=== PATIENT | female | born 1985 | race Caucasian/White ===

== ENCOUNTER 2023-01-03 20:52 | Outpatient (REF) | payer MEDICAID, SELFPAY | END 2023-01-03 20:53 | disposition home or self-care (01) | LOC: HO.HHCLNP 20:52 | PROVIDERS: Visit Provider Internal Medicine Geriatric Medicine | DX: R82.90 Unspecified abnormal findings in urine (principal) | CPT/HCPCS: 87086; 87088; 87186 ==

== ENCOUNTER 2023-03-31 09:30 | Outpatient (REF) | payer MEDICAID, SELFPAY ==
[2023-03-31 11:29] LABS: MANUAL DIFF FLAG NO
[2023-03-31 11:38] LABS: Basophils Percent Auto 0.6 % (0-2); Eosinophils Absolute Auto 0.3 X10*3/uL (0.0-0.4); Eosinophils Percent Auto 3.9 % (0-4); Hematocrit 38.1 % (37.0-47.0); Hemoglobin 12.3 g/dl (12.0-16.0); Imm Gran Abs Auto 0.02 X10*3/uL (0.00-0.03); Imm Gran Pct Auto 0.3 % (0.0-0.4); Lymphocytes Absolute Auto 1.6 X10*3/uL (1.2-4.9); Lymphocytes Percent Auto 24.2 % (20-40); Mean Corpuscular HGB Conc 32.3 g/dl (31.0-35.0); Mean Corpuscular Hemoglobin 28.3 pg (27.0-33.0); Mean Corpuscular Volume 87.6 fL (80.0-98.0); Mean Platelet Volume 10.4 fL (9.4-12.3); Monocytes Absolute Auto 0.4 X10*3/uL (0.1-1.2); Monocytes Percent Auto 5.9 % (2-11); Neutrophils Absolute Auto 4.3 x10*3/uL (2.0-8.3); Neutrophils Percent Auto 65.1 % (45-73); Platelet Count 408 X10*3/uL (160-400); Red Blood Count 4.35 X10*6/uL (4.20-5.50); Red Cell Distribution Width 14.6 % (11.0-16.0); White Blood Count 6.6 X10*3/uL (4.8-10.8)
[2023-03-31 11:49] LABS: Estimated Average Glucose 103 mg/dL; Hemoglobin A1C 93.9885 umol/L; Hemoglobin A1c % 5.2 % (<6.0)
[2023-03-31 12:04] LABS: Alanine Aminotransferase 9 U/L (0-31); Albumin Level 4.2 g/dL (3.5-5.0); Alkaline Phosphatase 46 U/L (39-117); Anion Gap 7 (12-20); Aspartate Amino Transferase 14 U/L (5-31); Bilirubin Direct 0.2 mg/dL (0.0-0.5); Bilirubin Total 0.5 mg/dL (0.0-1.0); Blood Urea Nitrogen 12 mg/dL (9-16); Calcium 9.4 mg/dL (8.4-10.2); Carbon Dioxide 28 mmol/L (22-29); Chloride 109 mmol/L (96-108); Cholesterol 170 mg/dL (<200); Estimated Glomerular Filt Rate > 60; Glucose Random 85 mg/dL (60-115); HDL Cholesterol 53 mg/dL (>40); LDL Cholesterol Calculated 107 mg/dL (<100); Sodium 140 mmol/L (135-145); Total Protein 7.7 g/dL (6.5-8.0); Triglycerides 52 mg/dL (<150)
[2023-03-31 12:24] LABS: Free T4 (Free Thyroxine) 0.84 ng/dL (0.71-1.85)
[2023-03-31 12:27] LABS: Syphilis Screen Nonreactive (Nonreactive)
[2023-03-31 12:42] LABS: HBS Num1 4.03 mIU/mL (0-7.99); HBsAGNum1 0.35 S/CO (0.00-0.99); HIV AB/AG Nonreactive (Nonreactive); HIV Num 1 0.05 S/CO (0.00-0.99); Hepatitis B Surface Antigen Negative (Negative); ~HepC Num1 0.57 S/CO (0.00-0.79); ~Hepatitis B Surface Antibody NONREACTIVE (Nonreactive); ~Hepatitis C Antibody Nonreactive (Nonreactive)
[2023-03-31 16:48] LABS: CT PCR NOT DETECTED (Not Detect.); NG PCR NOT DETECTED (Not Detect.)
== END 2023-03-31 09:31 | disposition home or self-care (01) ==
LOC: HO.HHCL 09:30
PROVIDERS: Visit Provider Family Medicine
DX: Z13.89 Encounter for screening for other disorder (principal)
CPT/HCPCS: 0353U; 80048; 80061; 80076; 82306; 83036; 84439; 84443; 85025; 86706; 86780; 86803; 87340; 87389

== ENCOUNTER 2023-07-13 11:34 | Outpatient (REF) | payer MEDICAID, SELFPAY ==
--- NOTE | ~2023-07-13 | US_ITS ---
EXAMINATION: US PELVIS CLINICAL INFORMATION: Abnormal uterine bleeding; the last menstrual period was on 06/17/2023. COMPARISON: Pelvic ultrasound dated 06/07/2019. TECHNIQUE: Ultrasound of the pelvis is performed using both transabdominal and transvaginal transducers along with Doppler. Transvaginal imaging is performed due to inadequate visualization transabdominally. FINDINGS: The uterus is of normal size and echogenicity, measuring 8.6 x 5.5 x 6.7 cm. The uterus is retroverted and retroflexed. A regular homogeneous endometrium is identified measuring 1.3 cm. Nabothian cysts are seen within the cervix. FIBROIDS: There are 4 fibroids seen. 1. Location: Posterior upper body, subserosal. Size: 2.5 x 1.1 x 1.7 cm. Prior: Not seen. Fibroid characteristics: Hypoechoic. 2. Location: Posterior upper body, submucosal. Size: 1.6 x 1.2 x 1.6 cm. Prior: Not seen. Fibroid characteristics: Heterogeneously hypoechoic. 3. Location: Mid fundus, myometrial. Size: 1.7 x 2.0 x 2.2 cm. Prior: 0.6 x 0.6 x 0.5 cm. Fibroid characteristics: Heterogeneously hypoechoic. 4. Location: Lower rightward body, myometrial. Size: 1.1 x 0.9 x 0.9 cm. Prior: Not seen. Fibroid characteristics: Hypoechoic. Both ovaries are of normal size and echogenicity. The right ovary measures 3.4 x 2.2 x 1.7 cm for a volume of 6.7 mL. The left ovary measures 3.5 x 2.0 x 2.3 cm for a volume of 8.5 mL. There is no pelvic free fluid. There is a small amount of free fluid in the cul-de-sac. US/US pelvic and transvaginal IMPRESSION: 1. Multiple uterine fibroids are seen, some new from prior. 2. There are nabothian cysts within the cervix. 3. There is a small amount of nonspecific free fluid within the cul-de-sac.
== END 2023-07-13 11:35 | disposition home or self-care (01) ==
LOC: HO.US 11:34
PROVIDERS: PCP Family Medicine; Visit Provider Family Medicine
DX: N93.9 Abnormal uterine and vaginal bleeding, unspecified (principal)
CPT/HCPCS: 76830; 76856

== ENCOUNTER 2023-12-05 11:52 | Outpatient (REF) | payer OTHER, SELFPAY | END 2023-12-05 11:53 | disposition home or self-care (01) | LOC: HO.MAMMO 11:52 | PROVIDERS: PCP Family Medicine; Visit Provider Family Medicine | DX: Z13.89 Encounter for screening for other disorder (principal) ==

== ENCOUNTER 2024-01-02 13:18 | Outpatient (REF) | payer SELFPAY ==
--- NOTE | ~2024-01-02 | MM_ITS ---
EXAMINATION: MM DIAGNOSTIC DIGITAL BREAST TOMOSYNTHESIS, BILATERAL US BREAST LIMITED, LEFT MAMMOGRAPHY: CLINICAL INFORMATION: Patient complaining of pain with tenderness to palpation at 12:00 axis right breast as per clinician, although patient says has resolved and cannot point out a corresponding region. Baseline bilateral screening exam. No family history of breast CA as per technologist note. COMPARISON: Mammography: None. Baseline exam. TECHNIQUE: Digital breast tomosynthesis is performed in both the craniocaudal and mediolateral oblique views along with computer-aided detection (CAD). Synthesized 2D images are generated from the tomosynthesis. In addition, 3-D spot compression left CC view, and full-field 3-D right ML view were also obtained. FINDINGS: There are scattered areas of fibroglandular density (ACR BI-RADS breast composition Category b). A possible distortion in the left breast 1:00 axis, middle one third, essentially effaces on spot compression view, most likely representing superimposition artifact. We will evaluate this region with ultrasound. Otherwise, there are are no suspicious masses, suspicious grouped calcifications, or areas of architectural distortion in either breast. There is no skin or axillary abnormality. ULTRASOUND: CLINICAL INFORMATION: Evaluate probable superimposition artifact left breast 1:00 axis, middle one third. COMPARISON: None TECHNIQUE: Targeted sonographic evaluation was performed using a high frequency linear transducer. Left breast was scanned from 11:00 to 3:00 axis to include the area of concern. Selected archived documentation. FINDINGS: LEFT BREAST: There is a mixture of fatty and fibroglandular tissue. No suspicious mass is seen. There is no pathologic acoustic shadowing. There are localized fibrocystic changes within dense breast tissue in the upper outer left breast. There are no suspicious findings. MM/MM tomosynthesis diagnostic BI IMPRESSION: There are no findings suspicious for malignancy in either breast. Recommend clinical management for the history of resolved right breast pain, if necessary. Otherwise, recommend the patient resume routine annual screening in one year. OVERALL ASSESSMENT: Mammography: BI-RADS 1 - Negative Ultrasound: BI-RADS 1 - Negative RECOMMENDATION: 1. Patient should be managed based on the clinical impression. 2. Otherwise, routine annual screening mammography. This patient's information was entered into a reminder system with a target due date for their next mammogram.
== END 2024-01-02 13:19 | disposition home or self-care (01) ==
LOC: HO.MAMMO 13:18
PROVIDERS: PCP Family Medicine; Visit Provider Family Medicine
DX: N64.4 Mastodynia (principal)
CPT/HCPCS: 76642; 77062; 77066

== ENCOUNTER → 2024-01-02 13:30 | Outpatient (BNV) | payer OTHER, SELFPAY | PROVIDERS: PCP Family Medicine; Visit Provider Radiology Diagnostic Radiology | DX: N64.4 Mastodynia (principal) | CPT/HCPCS: 76642; 77062; 77066 ==

== ENCOUNTER 2024-03-29 08:23 | Outpatient (AMB) | payer OTHER, SELFPAY ==
[2024-03-29 08:31] VITALS: BP 102/62; BMI 25.7
--- NOTE | 2024-03-29 08:31 | A.OFFVIS_ITS ---
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 Last co testing was in 05/16 was negative. Last mammogram was BI-RADS 1 in 01/20 Pelvic ultrasound done in 07/23 showed the following: The uterus is of normal size and echogenicity, measuring 8.6 x 5.5 x 6.7 cm. The uterus is retroverted and retroflexed. A regular homogeneous endometrium is identified measuring 1.3 cm. Nabothian cysts are seen within the cervix. FIBROIDS: There are 4 fibroids seen. 1. Location: Posterior upper body, subserosal. Size: 2.5 x 1.1 x 1.7 cm. Prior: Not seen. Fibroid characteristics: Hypoechoic. 2. Location: Posterior upper body, submucosal. Size: 1.6 x 1.2 x 1.6 cm. Prior: Not seen. Fibroid characteristics: Heterogeneously hypoechoic. 3. Location: Mid fundus, myometrial. Size: 1.7 x 2.0 x 2.2 cm. Prior: 0.6 x 0.6 x 0.5 cm. Fibroid characteristics: Heterogeneously hypoechoic. 4. Location: Lower rightward body, myometrial. Size: 1.1 x 0.9 x 0.9 cm. Prior: Not seen. Fibroid characteristics: Hypoechoic. Both ovaries are of normal size and echogenicity. The right ovary measures 3.4 x 2.2 x 1.7 cm for a volume of 6.7 mL. The left ovary measures 3.5 x 2.0 x 2.3 cm for a volume of 8.5 mL. There is no pelvic free fluid. There is a small amount of free fluid in the cul-de-sac. [facility] Social History (Updated 03/29/24 @ 08:35 by Michelle Enriquez) Household Members: Children Patient : No Female Reproductive History Menstrual Age of Menarche: 9 Duration of menses: 3-5 days Date of last menstrual period: 02/09/24 control method: permanent sterilization Total pregnancies: 2 Full term: 2 Premature: 0 Number of Living Children: 2 Ab induced: 0 Ab spontaneous: 0 Ectopics: 0 Multiple births: 0 Date of last pap smear: 03/01/22 History of abnormal pap smear: No History of STI: No Date of Mammogram: 01/30/24 History of abnormal mammogram: No Review of Systems Const All systems reviewed & are unremarkable except as noted in HPI and below Card Reports as per HPI Resp Reports as per HPI GI Reports as per HPI and Reports no additional complaints Reports as per HPI Physical Exam Vital Signs: Last Vital Signs BP 102/62 03/29/24 08:31 BMI result Body Mass Index 25.7 Const General: cooperative, healthy appearing and comfortable Chest Chest palpation & inspection: normal inspection of the chest and normal palpation of entire chest wall Breast/axilla inspection: normal inspection of the breasts and normal inspection of the axillae Breast/axilla palpation: normal palpation of the breasts, normal palpation of the axillae and no axillary lymphadenopathy Resp Effort & Inspection: normal respiratory effort Auscultation: clear to auscultation bilaterally Percussion: percussion normal Cardio Palpation: normal PMI Rate: regular rate Rhythm: regular rhythm Heart sounds: no murmurs and no rubs Peripheral pulses: Peripheral pulses 2+ throughout GI Inspection: Yes normal to inspection Palpation (GI): Soft to palpation, nontender, no guarding, not rigid and No hepatosplenomegaly present Percussion: Yes normal to percussion Auscultation: normal bowel sounds Rectal Exam - Female: deferred General: Yes bladder normal to palpation External Female Exam: No lesion Speculum Exam - Vagina: normal appearance of the vagina, normal palpation, normal vaginal discharge and not erythematous Speculum Exam - Cervix: normal appearance of the cervix and normal palpation Bimanual exam- vagina & uterus: normal bimanual exam, normal palpation, uterine size normal, bladder normal to palpation, consistency normal and normal palpation Bimanual Exam- Adnexa, other: normal adnexae, no masses and no tenderness Assessment & Plan Assessment & Plan (1) Abnormal uterine bleeding (AUB): Comment: With uterine myomas Code(s): N93.9 - Abnormal uterine and vaginal bleeding, unspecified Category: Medical Plan: Co testing done, GC and chlamydia taken CBC, TSH, prolactin, HCG, and pelvic ultrasound ordered. Discussed with the patient the different causes of abnormal bleeding including thyroid disorders, uterine and ovarian pathology, endometrial hyperplasia, carcinoma and other potential causes. Discussed with the patient the work up including CBC (to r/o anemia), TSH, prolactin, pelvic Ultrasound, endometrial biopsy to r/o endometrial pathology. All questions answered and the patient verbalized understanding. Instructed the patient to schedule an appointment for an endometrial biopsy in 2 weeks. Orders: Orders TSH reflex Free T4 Today N93.9 - Abnormal uterine and vaginal bleeding, unspecified US pelvic and transvaginal Today N93.9 - Abnormal uterine and vaginal bleeding, unspecified Complete Blood Count no Diff Today N93.9 - Abnormal uterine and vaginal bleeding, unspecified Prolactin Today N93.9 - Abnormal uterine and vaginal bleeding, unspecified HCG Quantitative Today N93.9 - Abnormal uterine and vaginal bleeding, unspecified Coding Level of Care Code New Pt Level 3 (69360) Diagnoses Abnormal uterine bleeding (AUB) N93.9
== END 2024-03-29 09:05 | disposition home or self-care (01) ==
LOC: HO.HWS 08:23
PROVIDERS: PCP Family Medicine; Visit Provider Obstetrics & Gynecology
DX: N93.9 Abnormal uterine and vaginal bleeding, unspecified (principal)
CPT/HCPCS: 99203

== ENCOUNTER 2024-03-29 08:23 | Outpatient (REF) | payer OTHER, SELFPAY ==
[2024-03-29 10:26] LABS: Hematocrit 39.4 % (37.0-47.0); Hemoglobin 12.8 g/dl (12.0-16.0); Mean Corpuscular HGB Conc 32.5 g/dl (31.0-35.0); Mean Corpuscular Hemoglobin 27.5 pg (27.0-33.0); Mean Corpuscular Volume 84.7 fL (80.0-98.0); Platelet Count 392 X10*3/uL (160-400); Red Blood Count 4.65 X10*6/uL (4.20-5.50); Red Cell Distribution Width 14.6 % (11.0-16.0); White Blood Count 8.4 X10*3/uL (4.8-10.8)
[2024-03-29 11:19] LABS: HCG Quantitative < 2 mIU/mL
[2024-03-29 18:13] LABS: Bacterial Vaginosis PCR POSITIVE (Negative); Candida Group PCR DETECTED (Not Detect); Candida glab krusei PCR NOT DETECTED (Not Detect); Trichomonas vaginalis PCR NOT DETECTED (Not Detect)
[2024-03-29 18:41] LABS: CT PCR NOT DETECTED (Not Detect.); NG PCR NOT DETECTED (Not Detect.)
[2024-03-30 08:22] LABS: Prolactin 12.3 ng/mL
[2024-03-30 11:04] LABS: HPV 16,18/45 See PAP report
== END 2024-03-29 08:24 | disposition home or self-care (01) ==
LOC: HO.LNP 08:23
PROVIDERS: PCP Family Medicine; Visit Provider Obstetrics & Gynecology
DX: N93.9 Abnormal uterine and vaginal bleeding, unspecified (principal)
CPT/HCPCS: 0352U; 84146; 84443; 84702; 85027; 87491; 87591; 87624; 88175; 99202

== ENCOUNTER 2024-03-29 09:15 | Outpatient (REF) | payer OTHER, SELFPAY | END 2024-03-29 09:16 | disposition home or self-care (01) | LOC: HO.LAB 09:15 | PROVIDERS: PCP Family Medicine; Referring Provider Family Medicine; Visit Provider Obstetrics & Gynecology | DX: Z13.89 Encounter for screening for other disorder (principal) ==

== ENCOUNTER 2024-04-05 13:23 | Outpatient (REF) | payer OTHER, SELFPAY | END 2024-04-05 13:24 | disposition home or self-care (01) | LOC: HO.US 13:23 | PROVIDERS: PCP Family Medicine; Visit Provider Obstetrics & Gynecology | DX: N93.9 Abnormal uterine and vaginal bleeding, unspecified (principal) | CPT/HCPCS: 76830; 76856 ==

== ENCOUNTER 2024-04-10 09:43 | Outpatient (AMB) | payer OTHER, SELFPAY ==
[2024-04-10 09:49] VITALS: BP 106/70; BMI 25.5
--- NOTE | 2024-04-10 09:49 | MHC.OFFVIS ---
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 Gill Box Tender Required: Yes Gill Box Tender Language: Transmission Inspector Services: Gill Box Tender Present (in person) Gill Box Tender Name: Marylou HOLLOWAY Information Interpreted: non-clinical & clinical Counterintelligence/Humint Specialist: Counterintelligence/Humint Specialist Present (Marylou HOLLOWAY) Accompanied by: Self / Same As Patient Allergies No Known Allergies Allergy (Unverified 04/10/24 09:50) HPI Comments Details: Presenting for EMB [facility] Social History Household Members: Children Female Reproductive History Menstrual Age of Menarche: 9 Review of Systems Const All systems reviewed & are unremarkable except as noted in HPI and below Reports as per HPI and Reports no additional complaints GI Reports no additional complaints Reports no additional complaints Physical Exam Vital Signs: Last Vital Signs BP 106/70 04/10/24 09:49 BMI result Body Mass Index 25.5 Office Procedures Endometrial Biopsy Details: The patient was counseled regarding the indication and benefits of endometrial sampling to rule out endometrial pathology including not limited to endometrial hyperplasia or endometrial cancer and others; The alternatives (Either do nothing vs. hysteroscopy D&C) & the risks were discussed with the patient including but not limited: pain, uterine perforation, bleeding, infection, possible injury to bladder, bowel, ureter, possible need for blood transfusion with all its possible risks. The patient verbalized understanding all questions answered and signed consent. Urine test done in the office was negative The patient was placed into the dorsal lithotomy position; a speculum was inserted in the vagina. Using aseptic technique for the procedure, the cervix was cleansed with Betadine. The anterior lip of the cervix was grasped with a single tooth tenaculum. The uterus was sounded to 7 cm with a 4 mm Pipelle was used. Tissues samples were obtained and placed in formalin, in a patient labeled container and sent to the pathology department. At the end of the procedure, there was minimal bleeding noted The patient tolerated the procedure well and was discharged in good condition with the following instructions: Nothing in the vagina until the bleeding stops. No sex until the bleeding stops, to call if any of the following occurs: fever (>100.4), flu-like symptoms, abdominal pain, heavy bleeding, four smelling vaginal discharge. The patient was instructed to schedule a Follow up appointment in 2 weeks to discuss pathology results of the biopsy and treatment options. This note was generated with a voice recognition program. Some errors may have been overlooked during the review of this note. Sometimes these errors may affect the content or meaning of a given sentence. 75118-[id number] Biopsy Results AMB Test Urine AMB Test Urine Negative Last Edit by Marylou Payne CMA on 04/10/24 09:55 Assessment & Plan Assessment & Plan (1) Abnormal uterine bleeding (AUB): Comment: With uterine myomas Code(s): N93.9 - Abnormal uterine and vaginal bleeding, unspecified Category: Medical Plan: EMB done, see procedure note Orders: Orders AMB HCG Urine Test Today Z32.02 - Encounter for test, result negative AMB Endometrial Biopsy Today N93.9 - Abnormal uterine and vaginal bleeding, unspecified Coding Level of Care Code Procedure Only Diagnoses Abnormal uterine bleeding (AUB) N93.9 CPT Codes Endometrial Biopsy - CPT: 40367-[id number] Biopsy ([id number])
== END 2024-04-10 10:12 | disposition home or self-care (01) ==
LOC: HO.HWS 09:43
PROVIDERS: PCP Family Medicine; Visit Provider Obstetrics & Gynecology
DX: N93.9 Abnormal uterine and vaginal bleeding, unspecified (principal); Z32.02 Encounter for pregnancy test, result negative
CPT/HCPCS: 58100

== ENCOUNTER 2024-04-10 09:43 | Outpatient (REF) | payer OTHER, SELFPAY | END 2024-04-10 09:44 | disposition home or self-care (01) | LOC: HO.LNP 09:43 | PROVIDERS: PCP Family Medicine; Visit Provider Obstetrics & Gynecology | DX: N93.9 Abnormal uterine and vaginal bleeding, unspecified (principal) | CPT/HCPCS: 58100; 81025; 88305 ==

== ENCOUNTER 2024-08-16 14:23 | Outpatient (AMB) | payer OTHER, SELFPAY ==
--- NOTE | 2024-08-16 14:23 | A.OFFVIS_ITS ---
Intake Visit Reasons: u/s and emb results Financial Engineer Required: Yes Financial Engineer Language: Bus Driver Supervisor Services: Financial Engineer Present (In person) Financial Engineer Name: AMIE Bautista Information Interpreted: non-clinical & clinical Allergies No Known Allergies Allergy (Verified 08/16/24 14:24) HPI Comments Details: The patient scheduled a telehealth visit for follow-up to discuss the results of her abnormal uterine bleeding workup and options of treatment. The following workup was done.: H&H= 12.8/39.4 TSH, prolactin, hCG, GC and chlamydia were negative. Endometrial biopsy pathology showed the following: Disordered proliferative endometrium; no atypia or hyperplasia identified Co testing was done was negative. Mammogram was negative. Pelvic ultrasound showed the following: Uterus: The uterus is anteverted and measures 7.2 x 4.2 x 5.2 cm for a volume of 84 mL. The double wall endometrial thickness is 4 mm. Four fibroids are seen and measured, ranging in size from 0.9 cm to 2.2 cm, most measuring smaller than on the prior exam. Nabothian cysts are present within the cervix. Adnexa: Both ovaries are visualized. There is normal color flow to the adnexa. There is no ovarian torsion. There is a tiny amount of pelvic fluid. Right ovary measures 2.8 x 1.5 x 1.7 cm for a volume of 3.7 mL. Follicular cysts are seen along with some calcifications. Left ovary measures 3.5 x 1.7 x 2.4 cm for a volume of 7.4 mL. Follicular cysts are noted. [facility] Social History Household Members: Children Female Reproductive History Menstrual Age of Menarche: 9 Review of Systems Const All systems reviewed & are unremarkable except as noted in HPI and below Reports as per HPI and Reports no additional complaints GI Reports no additional complaints Reports no additional complaints Telehealth Telehealth Telehealth Platform: [facility] Location of provider rendering services: practice address Location of patient: address on file Patient Identification confirmed using: Name, : Yes Telehealth method: voice only Patient verbally consented to treatment: Yes Patient verbally consented to billing insurance company: Yes Patient informed of any privacy concerns related to visit: Yes Minutes spent on Phone/Video with Pt.: 10 Assessment & Plan Assessment & Plan (1) Abnormal uterine bleeding (AUB): Code(s): N93.9 - Abnormal uterine and vaginal bleeding, unspecified Category: Medical Plan: Discussed with the patient the results of the work up done and options of treatment including Lysteda, control pills, Mirena IUD, endometrial ablation and hysterectomy. All pros, cons, risks and benefits if each option was discussed with the patient and the patient decided to go ahead with Mirena IUD so a more detailed discussion about it was conducted including mechanism of action, risks (uterine perforation, infection, injury to bladder, bowel, displacement, and others) benefits (hypo menorrhea, amenorrhea, ...). GC/CT were taken and the patient was instructed to schedule Mirena IUD insertion on day 1-5 of next cycle . All questions answered, the patient verbalized understanding (2) Uterine myoma: Code(s): D25.9 - Leiomyoma of uterus, unspecified Category: Medical Plan: Discussed with the patient the findings on pelvic ultrasound & the risk of myosarcoma; in addition reviewed with the patient that malignancy and pre malignancy cannot be ruled out without hysterectomy for pathological evaluation ; furthermore, explained to the patient the limitation of pelvic ultrasound and endometrial biopsy in the setting. Discussed with the patient the options of treatment including expectant management versus hysterectomy; the pros and cons, risks benefits of each approach were discussed with the patient including the fact that in cases of myosarcoma, surgical treatment can lead to early diagnosis and positively affects the prognosis; after further discussion, the patient decided to proceed with expectant management. Will repeat pelvic ultrasound periodically. Instructions given to patient to call in case any of the following occurs: pressure symptoms, abnormal uterine bleeding, pelvic pain; and to schedule a six-months pelvic ultrasound (order placed) and a follow-up appointment . All questions answered, the patient verbalized understanding and agreed with the plan . I spent a total of 20 minutes reviewing the chart, talking to the patient via phone and documenting in the medical record. Orders: Orders US pelvic and transvaginal 6 Months D25.9 - Leiomyoma of uterus, unspecified Coding Level of Care Code [facility] Est Pt Level 3 (85316) Diagnoses Abnormal uterine bleeding (AUB) N93.9 Uterine myoma D25.9
== END 2024-08-16 16:06 | disposition home or self-care (01) ==
LOC: HO.HWS 14:23
PROVIDERS: PCP Family Medicine; Visit Provider Obstetrics & Gynecology
DX: N93.9 Abnormal uterine and vaginal bleeding, unspecified (principal); D25.9 Leiomyoma of uterus, unspecified
CPT/HCPCS: 99213

== ENCOUNTER → 2024-08-16 14:23 | Outpatient (BNVA) | payer OTHER, SELFPAY | PROVIDERS: PCP Family Medicine; Visit Provider Obstetrics & Gynecology ==

== ENCOUNTER 2025-01-07 09:49 | Outpatient (REF) | payer OTHER, SELFPAY ==
--- OUTSIDE RECORDS SUMMARY | 2025-01-07 10:21 | XMS_ITS | Encounter Summary ---
Author Organization [employer] Address [address] [place] [address] Care Team Providers Care Field Test Engineer Name Role Phone Shivani Jordan DO Primary Care Provider [phone] Reason for Visit * Reason Onset Date Comments Appointment Request 06/29/2023 Encounter Details Date Type Department Care Team ([facility] st Contact Info) Description 06/29/2023 Telephone [facility] [address] [place] [address] Shivani Jordan DO [address] [place], [place] [id number] Appointment Request Social History Tobacco Use Types Packs/Day Years Used Date Smoking Tobacco: Never Passive Smoke Exposure: Never Smokeless Tobacco: Never Alcohol Use Standard Drinks/Week Comments Never 0 (1 standard drink = 0.6 oz pur e alcohol) Depression Answer Date Recorded Patient Health Questionnaire-9 Score 0 06/02/2022 Housing Stability Answer Date Recorded What is your housing situation today? I have albert levi 03/28/[address] you li ve. Do you have problems with any of the following? None of the above 03/28/2023 Food Insecurity Answer Date Recorded Within the past 12 months, y ou worried that your food would run out before you got money to buy more: Never True 03/28/2023 Within the past 12 months,th e food you bought just didn't last and you didn't have enough money to get more: Never True Transportation Answer Date Recorded In the past 12 months, has l ack of transportation kept you from medical appts, meetings, work or from getting things needed for daily living? No 03/28/2023 Utilities Answer Date Recorded In the past 12 months, has t he electric, gas, oil or water company threatened to shut off services in your home? 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 Pt is on recall. Please contact pt at [phone] documented in this encounter Plan of Treatment Not on file documented as of this encounter Visit Diagnoses Not on filedocumented in this encounter Additional Health Concerns Assessment Noted Time PHQ-9 Depression Total Score: 0 06/02/19 23 9:59 AM EST documented as of this encounter Care Teams Field Test Engineer Relationship Specialty Start Date End Date Shivani Jordan DO [address] [place] [address] PCP - General Family Medicine 05/30/18 documented as of this encounter
[2025-01-07 11:37] LABS: Hematocrit 35.8 % (37.0-47.0); Hemoglobin 11.5 g/dl (12.0-16.0); Mean Corpuscular HGB Conc 32.1 g/dl (31.0-35.0); Mean Corpuscular Hemoglobin 27.5 pg (27.0-33.0); Mean Corpuscular Volume 85.6 fL (80.0-98.0); NRBC Abs Auto 0.000 X10*3/uL (0.0-0.012); NRBC Pct Auto 0.0 /100WBC (0.0-0.2); Platelet Count 396 X10*3/uL (160-400); Red Blood Count 4.18 X10*6/uL (4.20-5.50); White Blood Count 7.0 X10*3/uL (4.8-10.8)
[2025-01-07 12:08] LABS: Alanine Aminotransferase 12 U/L (0-31); Albumin Level 4.0 g/dL (3.5-5.0); Alkaline Phosphatase 51 U/L (39-117); Anion Gap 11 (12-20); Aspartate Amino Transferase 23 U/L (5-31); Blood Urea Nitrogen 11 mg/dL (9-16); Calcium 8.7 mg/dL (8.4-10.2); Carbon Dioxide 30 mmol/L (22-29); Chloride 104 mmol/L (96-108); Cholesterol 165 mg/dL (<200); Estimated Glomerular Filt Rate > 60; HDL Cholesterol 55 mg/dL (>40); Potassium 4.2 mmol/L (3.3-5.1); Sodium 141 mmol/L (135-145); Total Protein 6.9 g/dL (6.5-8.0); Triglycerides 67 mg/dL (<150)
[2025-01-07 12:10] LABS: HBS Num1 1.46 mIU/mL (0-7.99); HBc Num1 0.08 S/CO (0.00-0.79); HBsAGNum1 0.40 S/CO (0.00-0.99); HIV Num 1 0.05 S/CO (0.00-0.99); Hepatitis B Surface Antigen Negative (Negative); ~HepC Num1 0.89 S/CO (0.00-0.79); ~Hepatitis B Surface Antibody NONREACTIVE (Nonreactive)
[2025-01-07 12:23] LABS: Free T4 (Free Thyroxine) 0.88 ng/dL (0.71-1.85); Thyroid Stimulating Hormone 1.99 uIU/mL (0.32-4.0)
[2025-01-07 12:28] LABS: Hemoglobin A1C 114.2241 umol/L; Total Hemoglobin (HGBA1C) 3079.8501 umol/L
[2025-01-07 13:06] LABS: CT PCR Urine NOT DETECTED (Not Detect.); NG PCR Urine NOT DETECTED (Not Detect.)
[2025-01-07 13:24] LABS: ~HepC Num2 0.96; ~HepC Num3 0.87; ~Hepatitis C Antibody GRAYZONE (Nonreactive)
[2025-01-08 16:18] LABS: HCV Log PCR <1.18 NOT DETECTED Log IU/mL (NOT DETECTED); HepC Viral Load <15 NOT DETECTED IU/mL (NOT DETECTED)
[2025-01-11 04:00] LABS: ~Hepatitis A Antibody IgG 0.36 S/CO (0.00-0.99)
== END 2025-01-07 09:50 | disposition home or self-care (01) ==
LOC: HO.HHCL 09:49
PROVIDERS: PCP Family Medicine; Visit Provider Family Medicine
DX: Z00.00 Encounter for general adult medical examination without abnormal findings (principal); Z11.8 Encounter for screening for other infectious and parasitic diseases; Z11.3 Encounter for screening for infections with a predominantly sexual mode of transmission; Z11.4 Encounter for screening for human immunodeficiency virus [HIV]; Z11.59 Encounter for screening for other viral diseases; J30.9 Allergic rhinitis, unspecified; I34.1 Nonrheumatic mitral (valve) prolapse; R10.2 Pelvic and perineal pain; G89.29 Other chronic pain
CPT/HCPCS: 36415; 80048; 80061; 80076; 82306; 83036; 84439; 84443; 85027; 86592; 86704; 86706; 86708; 86803; 87340; 87389; 87491; 87522; 87591

== ENCOUNTER 2025-03-01 08:44 | Outpatient (REF) | payer OTHER, SELFPAY ==
--- OUTSIDE RECORDS SUMMARY | 2025-03-01 09:06 | XMS_ITS | Encounter Summary ---
Author Organization [employer] Address [address] [place] [address] [address] [place] [address] Care Team Providers Care Book Author Name Role Phone Nikki Shivani Primary Care Provider [phone] Encounter Details Date Type Department Care Team ([facility] st Contact Info) Description 10/08/2022 Orders Only [facility] [address] [place] [address] Joshua Schofield MD [address] [place] [address] Vaginal candidiasis (Primary Dx) Social History Tobacco Use Types Packs/Day Years Used Date Smoking Tobacco: Never Passive Smoke Exposure: Never Smokeless Tobacco: Never Alcohol Use Standard Drinks/Week Comments Never 0 (1 standard drink = 0.6 oz pur e alcohol) Depression Answer Date Recorded Patient Health Questionnaire-9 Score 0 06/02/2022 Depression Answer Date Recorded Patient Health Questionnaire-2 Score 0 06/02/2022 Comments No Sex and Gender Information Value Date Recorded Sex Assigned at Female 03/29/2022 10:19 AM EDT Legal Sex Female 10:19 AM EDT Gender Identity Female 03/29/2022 10:19 AM EDT Sexual Orientation Choose not to disclose 2021 10:19 AM EDT Occupation Industry Job Start Date Job End Date [employer] Not on file Not on file Not on file COVID-19 Exposure Response Date Recorded In the last 10 days, have yo u been in contact with someone who was confirmed or suspected to have Coronavirus/COVID-19? No / Unsure 10/07/2022 9:10 AM EDT documented as of this encounter Plan of Treatment Not on file documented as of this encounter Procedures Procedure Name Priority Date/Time Associated Diagnosis Comments SYPHILIS SCREEN Routine 03/31/2023 9:43 AM EDT Vaginal candidiasis HEPATITIS C AB W/REFL TO HCV RNA, QN, PCR Routine 03/31/2023 9:43 AM EDT Vaginal candidiasis HEPATITIS B SURFACE ANTIGEN, EIA Routine 03/31/2023 9:43 AM EDT Vaginal candidiasis HEPATITIS B SURFACE ANTIBODY, QUALITATIVE Routine 03/31/2023 9:43 AM EDT Vaginal candidiasis CULTURE, URINE, ROUTINE Routine 01/03/2023 12:00 AM EDT Vaginal candidiasis documented in this encounter Results * Hepatitis B surface antigen, EIA (03/31/2023 9:43 AM EDT) Hepatitis B Surface Ag Negative Negative [facility] 03/31/2023 9:43 AM EDT 03/31/2023 11:25 AM EDT Shivani Jordan DO LAB BLOOD ORDERABLES Final R esult Performing Organization Address [facility] Co de Phone Number [facility] [address] [place] [phone] * Hepatitis C Antibody with Reflex to HCV, RNA, Quantitative, Real-Time PCR (03/31/2023 9:43 AM EDT) Hepatitis C Antibody Nonreactive Nonreactive [facility] Comment:Antibodies to HCV no t detected; does not exclude early acuteHCV infection. 03/31/2023 9:43 AM EDT 03/31/2023 11:25 AM EDT Shivani Jordan DO LAB BLOOD ORDERABLES Final R esult Performing Organization Address City/[facility]/ZIP Co de Phone Number [facility] [address] [place] [phone] * Hepatitis B Surface Antibody, Qualitative (03/31/2023 9:43 AM EDT) ~Hepatitis B Surface Antibody NONREACTIVE Nonreactive [facility] Comment:Nonreactive: < 8.00 mIU/mL 03/31/2023 9:43 AM EDT 03/31/2023 11:25 AM EDT Shivani Jordan DO LAB BLOOD ORDERABLES Final R esult [facility] [address] [place] [phone] * Syphilis Screen (03/31/2023 9:43 AM EDT) Syphilis Screen Nonreactive Nonreactive [facility] 03/31/2023 9:43 AM EDT 03/31/2023 11:25 AM EDT Shivani Jordan DO LAB BLOOD ORDERABLES Final R esult Performing Organization Address City/[facility]/ZIP Co de Phone Number [facility] [address] [place] [phone] * Culture, Urine, Routine (01/03/2023 12:00 AM EDT) Urine specimen obtained by clean catch procedure / Unknown 01/03/2023 01/03/2023 Comment:[facility] Narrative [facility] - 01/06/2023 8:28 AM EDT Escherichia coli Quant 50,000 to 100,000 cfu/mL Escherichia coli: Ampicillin 8(S) Escherichia coli: Ceftriaxone <=0.25(S) Escherichia coli: Gentamicin <=1(S) Escherichia coli: Levofloxacin <=0.12(S) Escherichia coli: Nitrofurantoin <=16(S) Escherichia coli: Trimethoprim/Sulfamethoxazole <=20(S) Specimen Source: Urine clean catch Fernie Name MD LAB MICROBIOLOGY - GENERAL ORDER ADELINA Final Result [facility] [address] [place] [phone] documented in this encounter Visit Diagnoses Diagnosis Vaginal candidiasis- Primary Candidiasis of vulva and vagina documented in this encounter Additional Health Concerns Assessment Noted Time PHQ-9 Depression Total Score: 0 06/02/19 23 9:59 AM EST documented as of this encounter Care Teams Book Author Relationship Specialty Start Date End Date Shivani Jordan DO [address] [place] [phone] PCP - General Family Medicine 05/30/18 documented as of this encounter
--- OUTSIDE RECORDS SUMMARY | 2025-03-01 09:06 | XMS_ITS | Clinical Summary ---
Author Organization [employer] Address [address] [facility] [address] [place] [address] Care Team Providers Care Play Leader Name Role Phone Zainab Jordanfer Primary Care Provider Allergies No known active allergies Medications olopatadine (Patanol) 0.1 % ophthalmic solutionIndicati ons:Allergic rhinitis, unspecified seasonality, unspecified trigger instill 1 drop by ophthalmic route 2 times every day into affected eye(s) at an interval of 6 to 8 hours as needed for ALLERGIES 5 mL 5 08/10/19 24 Active azelastine (Astelin) 0.1 % nasal spray Administer 1 spray into each nostril 2 times daily. Use in each nostril as directed 30 mL 11 02/10/20 24 Active fexofenadine (Halley) 180 MG tablet Take 1 tablet (180 mg) by mouth if needed each day (Allergies). 90 tablet 3 01/08/20 25 026 Active mometasone (Nasonex) 50 MCG/ACT nasal sprayIndications :Allergic rhinitis, unspecified seasonality, unspecified trigger Administer 2 sprays into each nostril Once per day. 17 g 11 01/08/20 25 026 Active polyethylene glycol, PEG, 3350 (Glycolax) 17 GM/SCOOP powderIndication s:Chronic constipation take (17G) by oral route every day mixed with 8 oz. water, juice, soda, coffee or tea as needed for Constipation 510 g 3 01/08/20 25 Active famotidine (Pepcid) 20 MG tablet Take 1 tablet (20 mg) by mouth at bedtime. 90 tablet 3 01/08/20 25 026 Active diphenhydrAMINE (BENADryl) 25 MG tablet Take 1 tablet (25 mg) by mouth every 6 (six) hours if needed for itching or allergies. 30 tablet 1 01/08/20 25 Active EPINEPHrine (Epipen) 0.3 MG/0.3ML injection syringe Inject 0.3 mL (0.3 mg) as directed 1 (one) time if needed for anaphylaxis. Inject into upper leg. Call 911 after use. 2 each 1 01/08/20 25 026 Active hydrocortisone (Proctosol HC) 2.5 % rectal cream Insert into the rectum if needed in the morning and at bedtime for hemorrhoids. 28 g 3 01/08/20 25 Active baclofen (Lioresal) 10 MG tablet Take 1 tablet (10 mg) by mouth if needed in the morning, at noon, and at bedtime for muscle spasms. 60 tablet 1 01/08/20 25 025 Active Witch Olivia (Hemorrhoidal Hygiene) 50 % pads APPLY TOPICALLY TO THE AFFECTED AREA(S) NEEDED FOR irritation OR FOR HEMORRHOIDS 100 each 3 01/10/20 25 Active acetaminophen (Tylenol 8 Hour) 650 MG ER tablet Take 1 tablet (650 mg) by mouth every 8 (eight) hours if needed for headaches. Do not crush, chew, or split. 40 tablet 1 01/08/20 25 025 Active Problems Problem Noted Date Diagnosed Date BMI 27.0-27.9,adult 02/10/2024 Periodontal disease 07/12/2022 Dental calculus 07/12/2022 Localized gingival recession 07/12/2022 Constipation 06/02/2022 Chronic pelvic pain in female 06/02/2022 Mitral valve prolapse 08/04/2015 Allergic rhinitis 05/02/2015 Depressive disorder 05/02/2015 Hemorrhoids 05/02/2015 Posttraumatic stress disorder 05/02/2015 Resolved Problems Problem Noted Date Diagnosed Date Resolved Date Gingival bleeding 07/12/2022 02/10/2024 Encounters Date Type Department Care Team Description 01/07/2025 9:15 AM EDT Office Visit [address] [phone] Shivani Jordan, DO Routine history and physical examination of adult (Primary Dx); Chronic allergic rhinitis; Mitral valve prolapse; Abnormal uterine bleeding (AUB); Chronic constipation; Urticaria; Occipital headache; BMI 25.0-25.9,adult; Allergic rhinitis, unspecified seasonality, unspecified trigger; Encounter for screening mammogram for malignant neoplasm of breast 01/07/2025 Orders Only [address] [phone] Shivani Jordan DO 01/07/[address] [phone] Shivani Jordan DO 01/07/2025 Travel 01/03/[address] [address] Shivani Jordan DO Chart Prep 12/27/2024 Patient Outreach [address] [address] Shivani Jordan DO Pre-visit Planning ((Unable to reach for PVP screening and or LVM) to be completed in office) 12/19/[address] [address] Shivani Jordan DO Recall Appointment 12/19/2024 Travel from Last 3 Months Immunizations Immunization Administration Dates Next Due Hep B, Adolescent or Pediatric 09/26/1997,1996,03/28/1997 Influenza injectable quadriv alent IIV4 with preservative 07/05/2017,07/13/2016 Influenza, IIV3, injectable 03/13/2014 TD (adult), 2 Lf tetanus tox oid, preservative free, adsorbed 06/02/2022,08/03/2007 Tdap 01/19/2012 Family History Medical History Relation Name Comments Alzheimer's disease Maternal Grandmother Heart disease Maternal Grandmother Hypertension Maternal Grandmother Colon cancer Mother's Brother Relation Name Status Comments Maternal Grandmother Mother Mother's Brother Alive Social History Tobacco Use Types Packs/Day Years Used Date Smoking Tobacco: Never Passive Smoke Exposure: Never Smokeless Tobacco: Never Tobacco Cessation:Counseling Given: Not Answered Alcohol Use Standard Drinks/Week Comments Never 0 (1 standard drink = 0.6 oz pur e alcohol) Depression Answer Date Recorded Patient Health Questionnaire-9 Score 0 01/07/2025 Patient Health Questionnaire-9 Score 0 01/07/2025 Last PHQ-9: Questionnaire Data Not on file 0 01/07/2025 Housing Stability Answer Date Recorded What is your housing situation today? I have albert levi 08/10/[address] you li ve. Do you have problems with any of the following? None of the above 08/10/2023 Food Insecurity Answer Date Recorded Within the past 12 months, y ou worried that your food would run out before you got money to buy more: Never True 08/10/2023 Within the past 12 months,th e food you bought just didn't last and you didn't have enough money to get more: Never True Transportation Answer Date Recorded In the past 12 months, has l ack of transportation kept you from medical appts, meetings, work or from getting things needed for daily living? No 08/10/2023 Utilities Answer Date Recorded In the past 12 months, has t he electric, gas, oil or water company threatened to shut off services in your home? No 08/10/2023 Depression Answer Date Recorded Patient Health Questionnaire-2 Score 0 01/07/2025 Comments No Sex and Gender Information Value Date Recorded Sex Assigned at Female 03/29/2022 10:19 AM EDT Legal Sex Female 10:19 AM EDT Gender Identity Female 03/29/2022 10:19 AM EDT Sexual Orientation Choose not to disclose 2021 10:19 AM EDT Occupation Industry Job Start Date Job End Date [employer] Not on file Not on file Not on file Last Filed Vital Signs Vital Sign Reading Time Taken Comments Blood Pressure 100/68 01/07/2025 9:16 AM EDT Pulse 85 01/07/2025 9:16 AM EDT Temperature 36.3 C (97.4 F) 01/07/2025 9:16 AM EDT Respiratory Rate 20 01/07/2025 9:16 AM EDT Oxygen Saturation 99% 01/07/2025 9:16 AM EDT Inhaled Oxygen Concentration - - Weight 76.2 kg (168 lb) 01/07/2025 9:16 AM EDT Height 172.7 cm (5' 8 ) 01/07/2025 9:16 AM EDT Body Mass Index 25.54 01/07/2025 9:16 AM EDT Plan of Treatment Health Maintenance Due Date Last Done Comments Family Planning (PISQ) 10/15/1998 HPV Vaccines (1 - 3-dose series) 10/15/1998 Pneumococcal Vaccine: Pediatrics (0 to 5 Years) and At-Risk Patients (6 to 49) Years (1 of 2 - PCV) 10/15/2002 Dental Oral Exam 12/22/2022 06/23/2022 Dental Prophylaxis 01/10/2023 07/12/2022 Dental X-Ray: Bitewings 06/24/2023 06/23/2022 SDOH Screening 08/09/2024 08/10/2023 COVID-19 Vaccine ( season) 2025 06/10/2021, 10/03/2020 Influenza Vaccine (#1) 2025 8, 07/13/2016, 03/13/2014 Dental X-Ray: Full Mouth 06/24/2025 06/23/2022 Mammogram 01/01/2026 01/02/2024, 01/02/2024 Alcohol/Substance Use Screening 01/07/2026 01/07/2025 Depression Screening 01/07/2026 01/07/2025, 01/08/20 25 Disability Screening 01/07/2026 01/07/2025 Tobacco Screening 01/07/2026 01/07/2025 HPV/Cotest 03/28/2029 03/28/2024, 0709/2021, 05/26/2018, Additional history exists Cervical Cancer Screening 03/29/2029 Pap Smear 03/29/2029 03/29/2024, 12/11/2021 DTaP/Tdap/Td Vaccines (3 - Td or Tdap) 06/02/2032 06/02/2022, 01/19/2012, 08/03/2007 Zoster Vaccines (1 of 2) 10/15/2033 RSV Patients and Patients Aged 60 years or older (1 - 1-dose 75+ series) 10/15/2058 Hepatitis B Vaccines Completed 09/26/1997, 05/27/1997, 03/28/1997 HIV Screening Completed 01/07/2025, 06/2022, 12/11/2021 Hepatitis C Screening Completed 01/07/2025 , 01/07/2025, 03/31/2023, Additional history exists HIB Vaccines Aged Out No longer eligi ble based on patient's age to complete this topic Hepatitis A Vaccines Aged Out No long er eligible based on patient's age to complete this topic IPV Vaccines Aged Out No longer eligi ble based on patient's age to complete this topic Meningococcal B Vaccine Aged Out No l onger eligible based on patient's age to complete this topic Meningococcal Vaccine Aged Out No aylin poonam eligible based on patient's age to complete this topic RSV under 20 months Aged Out No longe r eligible based on patient's age to complete this topic Rotavirus Vaccines Aged Out No longer eligible based on patient's age to complete this topic Procedures Procedure Name Priority Date/Time Associated Diagnosis Comments HEPATITIS C VIRAL RNA, QUANTITATIVE, REAL-TIME PCR Routine 01/07/2025 10:06 AM EDT CHLAMYDIA/TRICHOMONAS/ NEISSERIA GONORRHOEAE, PCR, URINE Routine 01/07/2025 10:06 AM EDT HEPATITIS B CORE AB TOTAL Routine 01/07/2025 10:06 AM EDT Chronic allergic rhinitis Mitral valve prolapse Chronic pelvic pain in female Healthcare maintenance Allergic rhinitis, unspecified seasonality, unspecified trigger HEPATITIS A ANTIBODY, TOTAL Routine 01/07/2025 10:06 AM EDT Chronic allergic rhinitis Mitral valve prolapse Chronic pelvic pain in female Healthcare maintenance Allergic rhinitis, unspecified seasonality, unspecified trigger HEPATITIS B SURFACE ANTIBODY, QUALITATIVE Routine 01/07/2025 10:06 AM EDT Chronic allergic rhinitis Mitral valve prolapse Chronic pelvic pain in female Healthcare maintenance Allergic rhinitis, unspecified seasonality, unspecified trigger RPR (MONITOR) W/REFL TITER Routine 01/07/2025 10:06 AM EDT Chronic allergic rhinitis Mitral valve prolapse Chronic pelvic pain in female Healthcare maintenance Allergic rhinitis, unspecified seasonality, unspecified trigger HEPATITIS C AB W/REFL TO HCV RNA, QN, PCR Routine 01/07/2025 10:06 AM EDT Chronic allergic rhinitis Mitral valve prolapse Chronic pelvic pain in female Healthcare maintenance Allergic rhinitis, unspecified seasonality, unspecified trigger HIV 1/2 ANTIGEN/ANTIBODY, FOURTH GENERATION W/RFL Routine 01/07/2025 10:06 AM EDT Chronic allergic rhinitis Mitral valve prolapse Chronic pelvic pain in female Healthcare maintenance Allergic rhinitis, unspecified seasonality, unspecified trigger HEPATITIS B SURFACE ANTIGEN, EIA Routine 01/07/2025 10:06 AM EDT Chronic allergic rhinitis Mitral valve prolapse Chronic pelvic pain in female Healthcare maintenance Allergic rhinitis, unspecified seasonality, unspecified trigger BASIC METABOLIC PANEL Routine 01/07/2025 10:06 AM EDT Chronic allergic rhinitis Mitral valve prolapse Chronic pelvic pain in female Healthcare maintenance Allergic rhinitis, unspecified seasonality, unspecified trigger CBC Routine 01/07/2025 10:06 AM EDT Chronic allergic rhinitis Mitral valve prolapse Chronic pelvic pain in female Healthcare maintenance Allergic rhinitis, unspecified seasonality, unspecified trigger HEMOGLOBIN A1C Routine 01/07/2025 10:06 AM EDT Chronic allergic rhinitis Mitral valve prolapse Chronic pelvic pain in female Healthcare maintenance Allergic rhinitis, unspecified seasonality, unspecified trigger HEPATIC FUNCTION PANEL Routine 10:06 AM EDT Chronic allergic rhinitis Mitral valve prolapse Chronic pelvic pain in female Healthcare maintenance Allergic rhinitis, unspecified seasonality, unspecified trigger VITAMIN D,25-OH,TOTAL,IA Routine 01/07/2025 10:06 AM EDT Chronic allergic rhinitis Mitral valve prolapse Chronic pelvic pain in female Healthcare maintenance Allergic rhinitis, unspecified seasonality, unspecified trigger TSH Routine 01/07/2025 10:06 AM EDT Chronic allergic rhinitis Mitral valve prolapse Chronic pelvic pain in female Healthcare maintenance Allergic rhinitis, unspecified seasonality, unspecified trigger LIPID PANEL, STANDARD Routine 01/07/2025 10:06 AM EDT Chronic allergic rhinitis Mitral valve prolapse Chronic pelvic pain in female Healthcare maintenance Allergic rhinitis, unspecified seasonality, unspecified trigger T4, FREE Routine 01/07/2025 10:06 AM EDT Chronic allergic rhinitis Mitral valve prolapse Chronic pelvic pain in female Healthcare maintenance Allergic rhinitis, unspecified seasonality, unspecified trigger PAP SMEAR Routine 03/29/2024 8:30 AM EDT HPV MRNA E6/E7 REFLEX TO HPV 16, 18/45 Routine 03/28/2024 12:00 AM EDT BI MAMMOGRAM DIAGNOSTIC TOMOSYNTHESIS BILATERAL Routine 01/02/2024 1:42 PM EDT Breast pain, right PROPHYLAXIS - ADULT Routine 07/12/2022 1 0:00 AM EST Periodontal disease Dental calculus Gingival bleeding INTRAORAL - COMPLETE SERIES OF RADIOGRAPHIC IMAGES Routine 06/23/2022 10:00 AM EST COMPREHENSIVE ORAL EVALUATION - NEW OR ESTABLISHED PATIENT Routine 06/23/2022 10:00 AM EST from Last 3 Months or Most Recently Relevant to Health Maintenance Results * Chlamydia/Trichomonas/Neisseria gonorrhoeae, PCR, Urine (01/07/2025 10:06 AM EDT) CT PCR, Urine NOT DETECTED Not Detect. [facility] Comment:A not detected test result does not exclude the possibilityof infection because test results can be affected byimproper specimen collection, concurrent antibiotic therapy,or the number of organisms in the specimen which may bebelow the sensitivity of the test. As with many diagnostictests, results from the Xpert CT/NG assay should beinterpreted in conjunction with other laboratory andclinical data available to the clinician.The Xpert CT/NG assay should not be used for the evaluationof suspected sexual abuse or for other medico-legalindications. Additional testing is recommended in anycircumstance when false positive or false negative resultscould lead to adverse medical, social or psychologicalconsequences. NG PCR, Urine NOT DETECTED Not Detect. [facility] Comment:A not detected test result does not exclude the possibilityof infection because test results can be affected byimproper specimen collection, concurrent antibiotic therapy,or the number of organisms in the specimen which may bebelow the sensitivity of the test. As with many diagnostictests, results from the Xpert CT/NG assay should beinterpreted in conjunction with other laboratory andclinical data available to the clinician.The Xpert CT/NG assay should not be used for the evaluationof suspected sexual abuse or for other medico-legalindications. Additional testing is recommended in anycircumstance when false positive or false negative resultscould lead to adverse medical, social or psychologicalconsequences. 01/07/2025 10:0 6 AM EDT 01/07/2025 11:23 AM EDT us Shivani Jordan DO LAB URINE ORDERABLES Final R esult [facility] [address] [place] [phone] * Vitamin D, 25-Hydroxy, Total, Immunoassay (01/07/2025 10:06 AM EDT) Vitamin D 25-OH Total 49.6 >30 ng/mL [facility] Comment: Health Based Reference Values*< 20 ng/mL [id number] ng/mL Insufficient> 30 ng/mL Sufficient*Juan Francisco CALLES. N Engl J Med. 2007;357:266-280There is no well-established upper level of normal vitamin Dlevels. Some laboratories use 50 ng/mL as an upper limit ofnormal. However, toxicity is patient-dependent and may occurat any level. Careful correlation with the patient'spresentation is necessary and, if there is concern forvitamin D toxicity, treatment should be consideredirrespective of the serum level.Care must be taken in interpreting Vitamin D results fromdifferent laboratories and methodologies. Published datademonstrated that results from patients undergoinghemodialysis may show a negative bias when tested withvarious automated 25-OH vitamin D assays when compared toLC-MS/MS.When testing samples from patients whose predominant form ofVitamin D is Vitamin D2, such as patients receiving VitaminD2 supplementation, results that are subtherapeutic shouldbe confirmed with another method such as LC-MS/MS. Blood Venous blood specimen / Unknown 01/07/2025 10:06 AM EDT 01/07/2025 11:22 AM EDT Shivani Jordan DO LAB BLOOD ORDERABLES Final R esult Performing Organization Address City/[facility]/ZIP Co de Phone Number [facility] [address] [place] [phone] * Hepatitis C Viral RNA, Quantitative, Real-Time PCR (01/07/2025 10:06 AM EDT) Pathologist [facility] Hepatitis C Viral Load <15 NOT DETECTED NOT DETECTED IU/mL [facility] HCV Log PCR <1.18 NOT DETECTED NOT DETECTED Log IU/mL [facility] Comment:For additional infor melissa, please refer [email or web address].[email or web address]/faq/[email or web address](This link is being provided for informational/educational purposes only.)THIS TEST WAS PERFORMED AT:[employer] [place] [id number] DIAS MD 01/07/2025 10:0 6 AM EDT 01/07/2025 2:44 PM EDT Shivani Jordan DO LAB BLOOD ORDERABLES Final R esult Performing Organization Address [facility] Co de Phone Number [facility] [address] [place] [phone] * Hepatitis C Antibody with Reflex to HCV, RNA, Quantitative, Real-Time PCR (01/07/2025 10:06 AM EDT) Pathologist [facility] Hepatitis C Antibody GRAYZONE Nonreactive [facility] Comment:Antibodies to HCV ma y or may not be present. Suggest repeatanti-HCV in 4-6 weeks and/or HCV viral load if clinicallyindicated. Blood Venous blood specimen / Unknown 01/07/2025 10:06 AM EDT 01/07/2025 11:22 AM EDT Shivani Jordan DO LAB BLOOD ORDERABLES Final R esult Performing Organization Address [facility]/ZIP Co de Phone Number [facility] [address] [place] [phone] * Hepatitis A Antibody, Total (01/07/2025 10:06 AM EDT) Hepatitis A Antibody IgG Nonreactive Nonreactive [facility] Blood Venous blood specimen / Unknown 01/07/2025 10:06 AM EDT 01/07/2025 11:22 AM EDT us Shivani Jordan DO LAB BLOOD ORDERABLES Final R esult Performing Organization Address [facility] Co de Phone Number [facility] [address] [place] [phone] * Hepatitis B surface antigen, EIA (01/07/2025 10:06 AM EDT) Hepatitis B Surface Ag Negative Negative [facility] Blood Venous blood specimen / Unknown 01/07/2025 10:06 AM EDT 01/07/2025 11:22 AM EDT us Shivani Jordan DO LAB BLOOD ORDERABLES Final R esult Performing Organization Address [facility]/ZIP Co de Phone Number [facility] [address] [place] [phone] * Hepatitis B Core Antibody, Total (01/07/2025 10:06 AM EDT) Hepatitis B Core Antibody Nonreactive Nonreactive [facility] Blood Venous blood specimen / Unknown 01/07/2025 10:06 AM EDT 01/07/2025 11:22 AM EDT us Shivani Jordan DO LAB BLOOD ORDERABLES Final R esult [facility] [address] [place] [phone] * RPR (Monitor) with Reflex to??Titer (01/07/2025 10:06 AM EDT) RPR (Monitor) w/Refl Titer NON-REACTI VE NON-REACT RICHARD [facility] Comment:THIS TEST WAS PERFOR MED AT:[facility] [employer] [place] [phone] DIAS MD Rapid Plasma Reagin Ab Titer TNP [facility] Blood Venous blood specimen / Unknown 01/07/2025 10:06 AM EDT 01/07/2025 11:22 AM EDT Shivani Jordan DO LAB BLOOD ORDERABLES Final R esult [facility] [address] [place] [phone] * HIV-1/2 Antigen and Antibodies, Fourth Generation, with Reflexes (01/07/2025 10:06 AM EDT) HIV AB/AG Nonreactive Nonreactive [facility] Comment:HIV-1 p24 Ag and/or HIV-1/HIV-2 Ab not detected.A test result that is nonreactive does not exclude thepossibility of exposure to or infection with HIV-1 and/orHIV-2. Nonreactive results in this assay for individualswith prior exposure to HIV-1 and/or HIV-2 may be due toantigen and antibody levels that are below the limit ofdetection of this assay.The Terviu HIV Ag/Ab Combo assay result andsupplemental assay results should be interpreted inconjunction with the patient's clinical presentation,history and other laboratory results. If the results areinconsistent with clinical evidence, additional testing issuggested to confirm the result. Blood Venous blood specimen / Unknown 01/07/2025 10:06 AM EDT 01/07/2025 11:22 AM EDT Shivani Jordan LAB BLOOD ORDERABLES Final R esult Performing Organization Address City/[facility]/ZIP Co de Phone Number [facility] [address] [place] [phone] * Hepatitis B Surface Antibody, Qualitative (01/07/2025 10:06 AM EDT) Pathologist [facility] ~Hepatitis B Surface Antibody NONREACTIVE Nonreactive [facility] Comment:Nonreactive: < 8.00 mIU/mL Blood Venous blood specimen / Unknown 01/07/2025 10:06 AM EDT 01/07/2025 11:22 AM EDT Shivani Jordan LAB BLOOD ORDERABLES Final R esult Performing Organization Address [facility] Co de Phone Number [facility] [address] [place] [phone] * (ABNORMAL) CBC (01/07/2025 10:06 AM EDT) [facility] White Blood Count 7.0 4.8 - 10.8 X10*3/uL [facility] Red Blood Count 4.18(L) 4.20 - 5.50 X10*6/uL [facility] Hemoglobin 11.5(L) 12.0 - 16.0 g/dl [facility] Hematocrit 35.8(L) 37.0 - 47.0 % [facility] Mean Corpuscular Volume 85.6 80.0 - 98.0 fL [facility] Mean Corpuscular Hemoglobin 27.5 27.0 - 33.0 pg [facility] Mean Corpuscular HGB Conc 32.1 31.0 - 35.0 g/dl [facility] Red Cell Distribution Width 15.1 11.0 - 16.0 % [facility] Platelet Count 396 160 - 400 X10*3/uL [facility] Mean Platelet Volume 10.5 9.4 - 12.3 fL [facility] NRBC Pct Auto 0.0 0.0 - 0.2 /100WBC [facility] NRBC Abs Auto 0.000 0.0 - 0.012 X10*3/uL [facility] Blood Venous blood specimen / Unknown 01/07/2025 10:06 AM EDT 01/07/2025 11:22 AM EDT Shivani Jordan DO LAB BLOOD ORDERABLES Final R esult Performing Organization Address City/[facility]/ZIP Co de Phone Number [facility] [address] [place] [phone] * TSH (01/07/2025 10:06 AM EDT) Thyroid Stimulating Hormone 1.99 0.32 - 4.0 uIU/mL [facility] Comment:TSH 3rd Generation ( [facility]) Blood Venous blood specimen / Unknown 01/07/2025 10:06 AM EDT 01/07/2025 11:22 AM EDT Shivani Jordan LAB BLOOD ORDERABLES Final R esult Performing Organization Address [facility] de Phone Number [facility] [address] [place] [phone] * T4, Free (01/07/2025 10:06 AM EDT) Free T4 (Free Thyroxine) 0.88 0.71 - 1.85 ng/dL [facility] Blood Venous blood specimen / Unknown 01/07/2025 10:06 AM EDT 01/07/2025 11:22 AM EDT Shivani Nikki DO LAB BLOOD ORDERABLES Final R esult Performing Organization Address [facility] Co de Phone Number [facility] [address] [place] [phone] * Hemoglobin A1c (01/07/2025 10:06 AM EDT) Hemoglobin A1c 5.5 <6.0 % [facility] Comment:Hemoglobin A1C Refer ence Range Adults: 4.8 - 6.0 % Non diabetic: < 6.0 % Goal: < 7.0 %Additional Action Suggested: > 8.0 %Note: Hemoglobin A1c results are invalid for patients with abnormal amounts of HbF. Blood transfusions may impact the HbA1c concentration in the patient sample. Estimated Average Glucose 111 mg/dL [facility] Comment:eAG = Estimated ave rage glucose which is %A1C expressed asaverage glucose, using the formula of the O1U-RhtuvtbNudzkqn Glucose study (ADAG), Diabetes Care, Vol.31,#8,Dec. 2007 Blood Venous blood specimen / Unknown 01/07/2025 10:06 AM EDT 01/07/2025 11:22 AM EDT us Shivani Jordan DO LAB BLOOD ORDERABLES Final R esult [facility] [address] [place] [phone] * Hepatic Function Panel (01/07/2025 10:06 AM EDT) Bilirubin, Total 0.5 0.0 - 1.0 mg/dL [facility] Bilirubin, Direct 0.2 0.0 - 0.5 mg/dL [facility] Aspartate Amino Transferase 23 5 - 31 U/L [facility] Comment:Slight Hemolysis.Int erpret result with caution. Alanine Aminotransferase 12 0 - 31 U/L [facility] Total Protein 6.9 6.5 - 8.0 g/dL [facility] Albumin Level 4.0 3.5 - 5.0 g/dL [facility] Alkaline Phosphatase 51 39 - 117 U/L [facility] Blood Venous blood specimen / Unknown 01/07/2025 10:06 AM EDT 01/07/2025 11:22 AM EDT us Shivani Reynanitish LAB BLOOD ORDERABLES Final R esult Performing Organization Address [facility] Co de Phone Number [facility] [address] [place] [address] [phone] * Lipid Panel, Standard (01/07/2025 10:06 AM EDT) Triglycerides 67 <150 mg/dL [facility] Comment:Desirable Triglyceri de: less than 150 mg/dLBorderline High Triglyceride 150-199 mg/dLHigh Triglyceride: 200-499 mg/dLVery High Triglyceride: greater than or equal to 5OO mg/dL Cholesterol 165 <200 mg/dL [facility] Comment:Desirable Cholestero l: less than 200 mg/dLBorderline High Cholesterol: 200-239 mg/dLHigh Cholesterol: greater than 239 mg/dL LDL Cholesterol Calculated 97 <100 mg/dL [facility] Comment:Desirable LDL: less than 100 mg/dLNear Optimal/Above Optimal LDL: 110- 129 mg/dLBorderline High LDL: 130-159 mg/dLHigh LDL: 160-189 mg/dLVery High LDL: greater than or equal to 190 mg/dL HDL Cholesterol 55 >40 mg/dL [facility] Comment:Desirable HDL: great er than 40 mg/dL Note: This HDL assay may give artificially low results in patients with liver disease. Blood Venous blood specimen / Unknown 01/07/2025 10:06 AM EDT 01/07/2025 11:22 AM EDT Shivani Nikki LAB BLOOD ORDERABLES Final R esult Performing Organization Address [facility]/ZIP Co de Phone Number [facility] [address] [place] [phone] [phone] * (ABNORMAL) Basic Metabolic Panel (01/07/2025 10:06 AM EDT) Sodium 141 135 - 145 mmol/L [facility] Potassium 4.2 3.3 - 5.1 mmol/L [facility] Comment:Slight Hemolysis.Int erpret result with caution. Chloride 104 96 - 108 mmol/L [facility] Carbon Dioxide 30(H) 22 - 29 mmol/L [facility] Anion Gap 11(L) 12 - 20 [facility] Urea Nitrogen (BUN) 11 9 - 16 mg/dL [facility] Creatinine, Serum 0.58 0.5 - 1.4 mg/dL [facility] Estimated Glomerular Filt Rate >60 [facility] Comment:Chronic Kidney Disea se: Estimated GFR < 60 mL/min/1.90g5Kwcncc Kidney Disease: Estimated GFR < 15 mL/min/1.73m2 Glucose 82 60 - 115 mg/dL [facility] Calcium 8.7 8.4 - 10.2 mg/dL [facility] Blood Venous blood specimen / Unknown 01/07/2025 10:06 AM EDT 01/07/2025 11:22 AM EDT Shivani Jordan DO LAB BLOOD ORDERABLES Final R esult [facility] [address] [place] [phone] * Pap Smear (03/29/2024 8:30 AM EDT) 03/29/2024 8:30 AM EDT 03/30/2024 10:04 AM EDT Narrative [facility] - 04/03/2024 8:18 AM EST ----- ------- Name: Emerson QuinteroNazanin Age/Sex: 38/F : 1985 Unit#: [id number] Attend Dr: Terell Collazo MD Re03/29/24 Status: DEP REF Location: HOTerrieLNP Disch: ----- ------- SPEC : [id number] RECD: 03/30/24 STATUS: EZEQUIEL WEINSTEIN NUM: [id number] MATTHEW: 03/29/24 [facility] DR: Terell Collazo MD ENTERED: 03/30/24 SP TYPE: Pap Smr OTHR DR: Shivani Jordan DO ORDERED: Pap Smear Interpretation Satisfactory for evaluation. Negative for intraepithelial lesion or malignancy. Coccobacilli consistent with shift in vaginal bre. HPV High Risk: Negative HPV Genotyping 16: Negative HPV Genotyping 18: Negative Clinical Information LMP: 02/09/24 Previous PAP test: 2018 Other history: Abnormal uterine and vaginal bleeding Material Received ThinPrep-Cervical Copies To: Shivani Jordan DO [address] [address] Terell Collazo MD [facility] [address] [place] [address] [address] [place] [phone] ----- ------- Signed (signature on file) MAXIMILIANO Meza (ASCP) 04/03/24 0818 ----- ------- END OF REPORT Generic External Data Provider LAB CYTOLOGY ORDE RABLES Final Result Performing Organization Address [facility]/ZIP Co de Phone Number [facility] [address] [place] [phone] * HPV mRNA E6/E7 w/Reflex to HPV Genotypes 16, 18/45 (03/28/2024 12:00 AM EDT) Historical Provider MD LAB CYTOLOGY ORDERABLES F inal Result Performing Organization Address [facility] Co de Phone Number [facility] [address] [place] [phone] * BI Mammogram Diagnostic Tomosynthesis Bilateral (01/02/2024 1:42 PM EDT) Anatomical Region Laterality Modality Breast Bilateral Mammography 01/02/2024 1:42 PM EDT Narrative 01/02/2024 2:43 PM EDT [facility] [address] [place] [address] Mammography Report Signed Patient: Nazanin Braga MR#: [id number] : 1985 Acct:[id number] Age/Sex: 38 / F ADM Date: 01/02/24 Loc: HOTerrieMAMMO Attending Dr: Shivani Jordan DO Ordering Physician: Shivani Jordan DO Results: 1N egative Date of Service: 01/02/24 Follow Up: 1 Year From Orig inal Mammogram Procedure(s): MM tomosynthesis diagnostic BI Accession Number(s): [id number] cc: Shivani Jordan DO EXAMINATION: MM DIAGNOSTIC DIGITAL BREAST TOMOSYNTHESIS, BILATERAL US BREAST LIMITED, LEFT MAMMOGRAPHY: CLINICAL INFORMATION: Patient complaining of pain with tenderness to palpation at 12:00 axis right breast as per clinician, although patient says has resolved and cannot point out a corresponding region. Baseline bilateral screening exam. No family history of breast CA as per technologist note. COMPARISON: Mammography: None. Baseline exam. TECHNIQUE: Digital breast tomosynthesis is performed in both the craniocaudal and mediolateral oblique views along with computer-aided detection (CAD). Synthesized 2D images are generated from the tomosynthesis. In addition, 3-D spot compression left CC view, and full-field 3-D right ML view were also obtained. FINDINGS: There are scattered areas of fibroglandular density (ACR BI-RADS breast composition Category b). A possible distortion in the left breast 1:00 axis, middle one third, essentially effaces on spot compression view, most likely representing superimposition artifact. We will evaluate this region with ultrasound. Otherwise, there are are no suspicious masses, suspicious grouped calcifications, or areas of architectural distortion in either breast. There is no skin or axillary abnormality. ULTRASOUND: CLINICAL INFORMATION: Evaluate probable superimposition artifact left breast 1:00 axis, middle one third. COMPARISON: None TECHNIQUE: Targeted sonographic evaluation was performed using a high frequency linear transducer. Left breast was scanned from 11:00 to 3:00 axis to include the area of concern. Selected archived documentation. FINDINGS: LEFT BREAST: There is a mixture of fatty and fibroglandular tissue. No suspicious mass is seen. There is no pathologic acoustic shadowing. There are localized fibrocystic changes within dense breast tissue in the upper outer left breast. There are no suspicious findings. MM/MM tomosynthesis diagnostic BI IMPRESSION: There are no findings suspicious for malignancy in either breast. Recommend clinical management for the history of resolved right breast pain, if necessary. Otherwise, recommend the patient resume routine annual screening in one year. OVERALL ASSESSMENT: Mammography: BI-RADS 1 - Negative Ultrasound: BI-RADS 1 - Negative RECOMMENDATION: 1. Patient should be managed based on the clinical impression. 2. Otherwise, routine annual screening mammography. This patient's information was entered into a reminder system with a target due date for their next mammogram. Dictated By: Marek Pinon MD Signed By: <Electronically signed by Marek Pinon MD in OV> 01/02/24 1439 DD/ 1342 TD/TT: Box Office Attendant: Procedure Note Donotuseinterpreter, Image - 01/02/2024 [facility] [address] [place] [address] Dr. [place], [place] [address] Mammography Report Signed Patient: Grecia BragaR#: [id number] : 1985Acct:[id number] Age/Sex: 38 / FADM Date: 01/02/24 Loc: HO.MAMMO Attending Dr: Shivani Jordan DO Ordering Physician: Shivani Jordanults: 1N egative Date of Service: 01/02/24Follow Up: 1 Year From [facility] Mamm[facility] Procedure(s): MM tomosynthesis diagnostic BI Accession Number(s): [id number] cc: Shivani Jordan DO EXAMINATION: MM DIAGNOSTIC DIGITAL BREAST TOMOSYNTHESIS, BILATERAL US BREAST LIMITED, LEFT MAMMOGRAPHY: CLINICAL INFORMATION: Patient complaining of pain with tenderness to palpation at 12:00 axis right breast as per clinician, although patient says has resolved and cannot point out a corresponding region. Baseline bilateral screening exam. No family history of breast CA as per technologist note. COMPARISON: Mammography: None. Baseline exam. TECHNIQUE: Digital breast tomosynthesis is performed in both the craniocaudal and mediolateral oblique views along with computer-aided detection (CAD). Synthesized 2D images are generated from the tomosynthesis. In addition, 3-D spot compression left CC view, and full-field 3-D right ML view were also obtained. FINDINGS: There are scattered areas of fibroglandular density (ACR BI-RADS breast composition Category b). A possible distortion in the left breast 1:00 axis, middle one third, essentially effaces on spot compression view, most likely representing superimposition artifact. We will evaluate this region with ultrasound. Otherwise, there are are no suspicious masses, suspicious grouped calcifications, or areas of architectural distortion in either breast. There is no skin or axillary abnormality. ULTRASOUND: CLINICAL INFORMATION: Evaluate probable superimposition artifact left breast 1:00 axis, middle one third. COMPARISON: None TECHNIQUE: Targeted sonographic evaluation was performed using a high frequency linear transducer. Left breast was scanned from 11:00 to 3:00 axis to include the area of concern. Selected archived documentation. FINDINGS: LEFT BREAST: There is a mixture of fatty and fibroglandular tissue. No suspicious mass is seen. There is no pathologic acoustic shadowing. There are localized fibrocystic changes within dense breast tissue in the upper outer left breast. There are no suspicious findings. MM/MM tomosynthesis diagnostic BI IMPRESSION: There are no findings suspicious for malignancy in either breast. Recommend clinical management for the history of resolved right breast pain, if necessary. Otherwise, recommend the patient resume routine annual screening in one year. OVERALL ASSESSMENT: Mammography: BI-RADS 1 - Negative Ultrasound: BI-RADS 1 - Negative RECOMMENDATION: 1. Patient should be managed based on the clinical impression. 2. Otherwise, routine annual screening mammography. This patient's information was entered into a reminder system with a target due date for their next mammogram. Dictated By: Marek Pinon MD Signed By: <Electronically signed by Marek Pinon MD in OV> 01/02/24 1439 DD/ 1342 TD/TT: Box Office Attendant: Shivani Jordan DO IMG BI PROCEDURES Final Resu lt from Last 3 Months or Most Recently Relevant to Health Maintenance Insurance [facility] 3 [place] * Guarantor: Abelardonikita QuinteroNazanin quinonez Account Type Relation to Patient Date of Phone Billing Address Personal/[place] [address] Care Teams Play Leader Relationship Specialty Start Date End Date Shivani Jordan DO [address] [place] [address] PCP - General Family Medicine 05/30/18
--- OUTSIDE RECORDS SUMMARY | 2025-03-01 09:06 | XMS_ITS | Encounter Summary ---
Author Organization [employer] Address [address] [place] [address] Care Team Providers Care Bid Analyst Name Role Phone Zainab Jordanfer Primary Care Provider [phone] Encounter Details Date Type Department Care Team (Late st Contact Info) Description 09/24/2024 Orders Only [facility] [address] [place], [place] [phone] Subha Romano Social History Tobacco Use Types Packs/Day Years Used Date Smoking Tobacco: Never Passive Smoke Exposure: Never Smokeless Tobacco: Never Alcohol Use Standard Drinks/Week Comments Never 0 (1 standard drink = 0.6 oz pur e alcohol) Depression Answer Date Recorded Patient Health Questionnaire-9 Score 0 08/10/2023 Patient Health Questionnaire-9 Score 0 08/10/2023 Last PHQ-9: Questionnaire Data Not on file 0 08/10/2023 Housing Stability Answer Date Recorded What is [...] Date Recorded Patient Health Questionnaire-2 Score 0 08/10/2023 Comments No Sex and Gender Information Value Date Recorded Sex Assigned at Female 03/29/2022 10:19 AM EDT Legal Sex Female 10:19 AM EDT Gender Identity Female 03/29/2022 10:19 AM EDT Sexual Orientation Choose not to disclose 2021 10:19 AM EDT 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 Not on file Not on file documented as of this encounter Plan of Treatment Not on file documented as of this encounter Procedures Procedure Name Priority Date/Time Associated Diagnosis Comments HPV MRNA E6/E7 REFLEX TO HPV 16, 18/45 Routine 03/28/2024 12:00 AM EDT documented in this encounter Results * HPV mRNA E6/E7 w/Reflex to HPV Genotypes 16, 18/45 (03/28/2024 12:00 AM EDT) us Historical Provider LAB CYTOLOGY ORDERABLES F inal Result [facility] [address] [place] [phone] documented in this encounter Visit Diagnoses Not on filedocumented in this encounter Additional Health Concerns Assessment Noted Time PHQ-9 Depression Total Score: 0 08/10/19 24 9:44 AM EDT documented as of this encounter Care Teams Bid Analyst Relationship Specialty Start Date End Date Shivani Jordan DO [address] [place] [phone] PCP - General Family Medicine 05/30/18 documented as of this encounter
--- OUTSIDE RECORDS SUMMARY | 2025-03-01 09:06 | XMS_ITS | Encounter Summary ---
Author Organization [employer] Address [address] [facility] [address] [place] [address] Care Team Providers Care Target Trimmer Name Role Phone Zainab Jordanfer Primary Care Provider [phone] Encounter Details Date Type Department Care Team (Late st Contact Info) Description 07/20/2022 Abstract [facility] [address] [place] [address] Alvin Reynoso DDS [address] [place] [address] Social History Tobacco Use Types Packs/Day Years Used Date Smoking Tobacco: Never Passive Smoke Exposure: Never Smokeless Tobacco: Never Alcohol Use Standard Drinks/Week Comments Never 0 (1 standard drink = 0.6 oz pur e alcohol) Depression Answer Date Recorded Patient Health Questionnaire-9 Score 0 06/02/2022 Depression Answer Date Recorded Patient Health Questionnaire-2 Score 0 06/02/2022 Comments Unknown Sex and Gender Information Value Date Recorded Sex Assigned at Female 03/29/2022 10:19 AM EDT Legal Sex Female 10:19 AM EDT Gender Identity Female 03/29/2022 10:19 AM EDT Sexual Orientation Choose not to disclose 2021 10:19 AM EDT 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 No / Unsure 07/12/2022 10:05 AM EST documented as of this encounter Plan of Treatment Not on file documented as of this encounter Visit Diagnoses Not on filedocumented in this encounter Additional Health Concerns Assessment Noted Time PHQ-9 Depression Total Score: 0 06/02/19 23 9:59 AM EST documented as of this encounter Care Teams Target Trimmer Relationship Specialty Start Date End Date Shivani Jordan DO [address] [place] [address] PCP - General Family Medicine 05/30/18 documented as of this encounter
--- OUTSIDE RECORDS SUMMARY | 2025-03-01 09:06 | XMS_ITS | Encounter Summary ---
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
--- OUTSIDE RECORDS SUMMARY | 2025-03-01 09:06 | XMS_ITS | Encounter Summary ---
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 Pt is on recall. Please contact pt at [phone] documented in this encounter Plan of Treatment Not on file documented as of this encounter Visit Diagnoses Not on filedocumented in this encounter Additional Health Concerns Assessment Noted Time PHQ-9 Depression Total Score: 0 06/02/19 23 9:59 AM EST documented as of this encounter Care Teams Flume Maker Relationship Specialty Start Date End Date Shivani Jordan DO [address] [place] [address] PCP - General Family Medicine 05/30/18 documented as of this encounter
== END 2025-03-01 08:45 | disposition home or self-care (01) ==
LOC: HO.MAMMO 08:44
PROVIDERS: PCP Family Medicine; Visit Provider Family Medicine
DX: Z12.31 Encounter for screening mammogram for malignant neoplasm of breast (principal)
CPT/HCPCS: 77063; 77067

== ENCOUNTER → 2025-03-01 08:45 | Outpatient (BNV) | payer OTHER, SELFPAY | PROVIDERS: PCP Family Medicine; Visit Provider Internal Medicine | DX: Z12.31 Encounter for screening mammogram for malignant neoplasm of breast (principal) | CPT/HCPCS: 77063; 77067 ==

== ENCOUNTER → 2025-03-04 10:05 | Outpatient (REF) | payer OTHER, SELFPAY ==
--- NOTE | 2025-03-04 10:08 | CA_ITS ---
Transthoracic Echocardiogram Patient (Last, First, Middle): Nazanin Braga, Gender: F Date of : 1985 Age: 39 Procedure Date: 03/04/2025 Procedure Type: Transthoracic Echocardiogram Location: OP Height: 172. cm Weight: 73.48 kg BSA: 1.86 m2 Heart Rate: 77 bpm BP: 105 / 60 mmHg Aquaculture Worker: SHA Beckford MD: Shivani Jordan DO Irrigation Foreman: Mike Montana MD Symptoms: MITRAL VALVE PROLAPSE Study Quality: Adequate ECG Rhythm: Sinus Conclusions: - Normal study Findings Left Ventricle Normal left ventricular size, thickness, and systolic function. The visually estimated ejection fraction is between 60-65%. Diastolic function is normal for age. Right Ventricle Normal right ventricular cavity size and systolic function. Atria Both atria are normal in size. Aortic Valve Normal aortic valve structure and function. There is no aortic valve stenosis. There is no aortic valve regurgitation. Mitral Valve Normal mitral valve structure and function. There is no mitral valve prolapse. There is trace mitral valve regurgitation. There is no mitral valve stenosis. Pulmonic Valve The pulmonic valve is likely normal. Tricuspid Valve Normal tricuspid valve structure. There is trace tricuspid valve regurgitation. The right ventricular systolic pressure is normal. The right ventricular systolic pressure is 18 mmHg. Normal right atrial pressure. There is no evidence of pulmonary hypertension. Great Vessels All visible segments of the aorta are normal in size. The pulmonary artery was not well visualized. Venous The inferior vena cava is normal in size and collapses greater than 50% with inspiration. Pericardium/Pleural There is no evidence of pericardial effusion. Prior Study Comparison No prior study available for comparison. Measurements 2D Linear Measurements IVSd: 0.73 0.6-0.9/0.6-1.0 cm LVIDd: 5.07 3.9-5.3/4.2-5.9 cm LVIDd Index: 2.73 2.4-3.2/2.2-3.1 cm/m2 LVIDs: 3.24 2.0-3.6 cm LVPWd: 0.82 0.7-1.1 cm LA Diam: 3.20 2.7-3.8/3.0-4.0 cm LAIDs Index: 1.72 1.5-2.3 cm/m2 LV Mass: 165.91 67-162/88-224 g LV Mass Index: 89.20 43-95/49-115 g/m2 LVOT Diam: 2.10 3.0+(-)1.3 cm Mitral Valve MV Pk E: 0.76 MV PK A: 0.57 MV Decel Time: 188.00 E/A: 1.30 E'Lateral: 15.10 E'Medial: 11.90 E/E' Med: 6.40 E/E' Lat: 5.00 PHT: 55.00 MVA PHT: 4.00 Decel Lehigh: 4.01 Aortic Valve AoV Pk Azael: 1.13 AoV Mn Azael: 0.77 AoV VTI: 0.24 AoV Pk Grad: 5.00 Aov Mn Grad: 3.00 REYNALDO Cont.VTI: 2.73 LVOT LVOT Pk Azael: 0.84 LVOT Mn Azael: 0.64 LVOT VTI: 0.19 LVOT Pk Grad: 3.00 LVOT Mn Grad: 2.00 LVOT Diam: 2.10 LVOT Area: 3.46 Diastolic Function MV Pk E: 0.76 MV Pk A: 0.57 E/A: 1.30 E'Medial: 11.90 E/E' Med: 6.40 E' Laterial: 15.10 E/E' Lat: 5.00 Right Ventricle TAPSE (mm): 2.30 TVS' Azael: 10.80 Tricuspid Valve TR Pk Azael: 1.91 TR Pk Grad: 15.00 RA Press: 3.00 RVSP: 18.00 Great Vessels Aorta Sinus of Valsalva: 2.90 2.0-3.5 cm Ao Asc: 2.30 2.1-3.4 cm Ao Arch: 2.40 Pulmonary Veins Pulm Vein S/D 2.20 Pulmonary Valve PV Pk Azael: 0.90 Peak PV Grad: 3.00 Updated in Other Vendor System with Status of Final Mike Montana MD electronically signed on 03/04/2025 5:03:49 PM with status of Final
--- OUTSIDE RECORDS SUMMARY | 2025-03-04 11:44 | XMS_ITS | Clinical Summary ---
Author Organization [employer] Address [address] [facility] [address] [place] [address] Care Team Providers Care Establishment Guide Name Role Phone Zainab Jordanfer Primary Care [...] Description 01/07/2025 9:15 AM EDT Office Visit [address] [phone] Shivani Jordan, DO Routine history and physical examination of adult (Primary Dx); Chronic allergic rhinitis; Mitral valve prolapse; Abnormal uterine bleeding (AUB); Chronic constipation; Urticaria; Occipital headache; BMI 25.0-25.9,adult; Allergic rhinitis, unspecified seasonality, unspecified trigger; Encounter for screening mammogram for malignant neoplasm of breast 01/07/2025 Orders Only [address] [address] Shivani Jordan DO 01/07/[address] [address] Shivani Jordan DO 01/07/2025 Travel 01/03/[address] [address] Shivani Jordan DO Chart Prep 12/27/2024 Patient Outreach [address] [address] Shivani Jordan DO Pre-visit Planning ((Unable to reach for PVP screening and or LVM) to be completed in office) 12/19/[address] [address] Shivani Jordan DO Recall Appointment 12/19/2024 Travel [...] 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 [facility] Comment:A not detected test result does [...] NG PCR, Urine NOT DETECTED Not Detect. [facility] Comment:A not detected test result does [...] DO LAB URINE ORDERABLES Final R esult [facility] [address] [place] [phone] * Vitamin D, 25-Hydroxy, Total, Immunoassay (01/07/2025 10:06 AM EDT) Vitamin D 25-OH Total 49.6 >30 ng/mL [facility] Comment: Health Based Reference Values*< 20 ng/mL Fajqifwvl05-34 ng/mL Insufficient> 30 ng/mL Sufficient*Juan Francisco CALLES. [...] ORDERABLES Final R esult Performing Organization Address City/[facility]/ZIP Co de Phone Number [facility] [address] [place] [phone] * Hepatitis C Viral RNA, Quantitative, Real-Time PCR (01/07/2025 10:06 AM EDT) Pathologist [facility] Hepatitis C Viral Load <15 NOT DETECTED NOT DETECTED IU/mL [facility] HCV Log PCR <1.18 NOT DETECTED NOT DETECTED Log IU/mL [facility] Comment:For additional infor melissa, please refer tohttp://education.StockLayouts/faq/VAB70y7(This link is being provided for informational/educational purposes only.)THIS TEST WAS PERFORMED AT:[facility] [address] [place] [phone] DIAS MD 01/07/2025 10:0 6 AM EDT 01/07/2025 2:44 PM EDT Shivani Jordan DO LAB BLOOD ORDERABLES Final R esult Performing Organization Address [facility] Co de Phone Number [facility] [address] [place] [phone] * Hepatitis C Antibody with Reflex to HCV, RNA, Quantitative, Real-Time PCR (01/07/2025 10:06 AM EDT) Pathologist [facility] Hepatitis C Antibody GRAYZONE Nonreactive [facility] Comment:Antibodies to HCV ma y or may not be present. Suggest repeatanti-HCV in 4-6 weeks and/or HCV viral load if clinicallyindicated. Blood Venous blood specimen / Unknown 01/07/2025 10:06 AM EDT 01/07/2025 11:22 AM EDT Shivani Jordan DO LAB BLOOD ORDERABLES Final R esult Performing Organization Address [facility]/ZIP Co de Phone Number [facility] [address] [place] [phone] * Hepatitis A Antibody, Total (01/07/2025 10:06 AM EDT) Hepatitis A Antibody IgG Nonreactive Nonreactive [facility] Blood Venous blood specimen / Unknown 01/07/2025 10:06 AM EDT 01/07/2025 11:22 AM EDT us Shivani Jordan DO LAB BLOOD ORDERABLES Final R esult Performing Organization Address [facility] Co de Phone Number [facility] [address] [place] [phone] * Hepatitis B surface antigen, EIA (01/07/2025 10:06 AM EDT) Hepatitis B Surface Ag Negative Negative [facility] Blood Venous blood specimen / Unknown 01/07/2025 10:06 AM EDT 01/07/2025 11:22 AM EDT us Shivani Jordan DO LAB BLOOD ORDERABLES Final R esult Performing Organization Address [facility]/ZIP Co de Phone Number [facility] [address] [place] [phone] * Hepatitis B Core Antibody, Total (01/07/2025 10:06 AM EDT) Hepatitis B Core Antibody Nonreactive Nonreactive [facility] Blood Venous blood specimen / Unknown 01/07/2025 10:06 AM EDT 01/07/2025 11:22 AM EDT us Shivani Jordan DO LAB BLOOD ORDERABLES Final R esult [facility] [address] [place] [phone] * RPR (Monitor) with Reflex to??Titer (01/07/2025 10:06 AM EDT) RPR (Monitor) w/Refl Titer NON-REACTI VE NON-REACT RICHARD [facility] Comment:THIS TEST WAS PERFOR MED AT:[facility] [address] [place] [phone] DIAS MD Rapid Plasma Reagin Ab Titer TNP [facility] Blood Venous blood specimen / Unknown 01/07/2025 10:06 AM EDT 01/07/2025 11:22 AM EDT Shivani Jordan DO LAB BLOOD ORDERABLES Final R esult [facility] [address] [place] [phone] * HIV-1/2 Antigen and Antibodies, Fourth Generation, with Reflexes (01/07/2025 10:06 AM EDT) HIV AB/AG Nonreactive Nonreactive [facility] Comment:HIV-1 p24 Ag and/or HIV-1/HIV-2 Ab not detected.A test result that is nonreactive does not exclude thepossibility of exposure to or infection with HIV-1 and/orHIV-2. Nonreactive results in this assay for individualswith prior exposure to HIV-1 and/or HIV-2 may be due toantigen and antibody levels that are below the limit ofdetection of this assay.[employer] HIV Ag/Ab Combo assay result andsupplemental assay results should be interpreted inconjunction with the patient's clinical presentation,history and other laboratory results. If the results areinconsistent with clinical evidence, additional testing issuggested to confirm the result. Blood Venous blood specimen / Unknown 01/07/2025 10:06 AM EDT 01/07/2025 11:22 AM EDT Shivani Jordan LAB BLOOD ORDERABLES Final R esult Performing Organization Address [facility]/ZIP Co de Phone Number [facility] [address] [place] [phone] [phone] * Hepatitis B Surface Antibody, Qualitative (01/07/2025 10:06 AM EDT) Pathologist [facility] ~Hepatitis B Surface Antibody NONREACTIVE Nonreactive [facility] Comment:Nonreactive: < 8.00 mIU/mL Blood Venous blood specimen / Unknown 01/07/2025 10:06 AM EDT 01/07/2025 11:22 AM EDT Shivani Jordan LAB BLOOD ORDERABLES Final R esult Performing Organization Address [facility] Co de Phone Number [facility] [address] [place] [phone] [phone] * (ABNORMAL) CBC (01/07/2025 10:06 AM EDT) [facility] White Blood Count 7.0 4.8 - 10.8 X10*3/uL [facility] Red Blood Count 4.18(L) 4.20 - 5.50 X10*6/uL [facility] Hemoglobin 11.5(L) 12.0 - 16.0 g/dl [facility] Hematocrit 35.8(L) 37.0 - 47.0 % [facility] Mean Corpuscular Volume 85.6 80.0 - 98.0 fL [facility] Mean Corpuscular Hemoglobin 27.5 27.0 - 33.0 pg [facility] Mean Corpuscular HGB Conc 32.1 31.0 - 35.0 g/dl [facility] Red Cell Distribution Width 15.1 11.0 - 16.0 % [facility] Platelet Count 396 160 - 400 X10*3/uL [facility] Mean Platelet Volume 10.5 9.4 - 12.3 fL [facility] NRBC Pct Auto 0.0 0.0 - 0.2 /100WBC [facility] NRBC Abs Auto 0.000 0.0 - 0.012 X10*3/uL [facility] Blood Venous blood specimen / Unknown 01/07/2025 10:06 AM EDT 01/07/2025 11:22 AM EDT Shivani Jordan DO LAB BLOOD ORDERABLES Final R esult Performing Organization Address [facility]/ZIP Co de Phone Number [facility] [address] [place] [phone] * TSH (01/07/2025 10:06 AM EDT) Thyroid Stimulating Hormone 1.99 0.32 - 4.0 uIU/mL [facility] Comment:TSH 3rd Generation ( [facility]) Blood Venous blood specimen / Unknown 01/07/2025 10:06 AM EDT 01/07/2025 11:22 AM EDT Shivani Jordan LAB BLOOD ORDERABLES Final R esult Performing Organization Address [facility] de Phone Number [facility] [address] [place] [phone] * T4, Free (01/07/2025 10:06 AM EDT) Free T4 (Free Thyroxine) 0.88 0.71 - 1.85 ng/dL [facility] Blood Venous blood specimen / Unknown 01/07/2025 10:06 AM EDT 01/07/2025 11:22 AM EDT Shivani Nikki DO LAB BLOOD ORDERABLES Final R esult Performing Organization Address [facility] Co de Phone Number [facility] [address] [place] [phone] * Hemoglobin A1c (01/07/2025 10:06 AM EDT) Hemoglobin A1c 5.5 <6.0 % [facility] Comment:Hemoglobin A1C Refer ence Range Adults: 4.8 - 6.0 % Non diabetic: < 6.0 % Goal: < 7.0 %Additional Action Suggested: > 8.0 %Note: Hemoglobin A1c results are invalid for patients with abnormal amounts of HbF. Blood transfusions may impact the HbA1c concentration in the patient sample. Estimated Average Glucose 111 mg/dL [facility] Comment:eAG = Estimated ave rage glucose which is %A1C expressed asaverage glucose, using the formula of the H6X-NyaoybaQhdbvei Glucose study (ADAG), Diabetes Care, Vol.31,#8,Dec. 2007 Blood Venous blood specimen / Unknown 01/07/2025 10:06 AM EDT 01/07/2025 11:22 AM EDT us Shivani Jordan DO LAB BLOOD ORDERABLES Final R esult [facility] [address] [place] [phone] * Hepatic Function Panel (01/07/2025 10:06 AM EDT) Bilirubin, Total 0.5 0.0 - 1.0 mg/dL [facility] Bilirubin, Direct 0.2 0.0 - 0.5 mg/dL [facility] Aspartate Amino Transferase 23 5 - 31 U/L [facility] Comment:Slight Hemolysis.Int erpret result with caution. Alanine Aminotransferase 12 0 - 31 U/L [facility] Total Protein 6.9 6.5 - 8.0 g/dL [facility] Albumin Level 4.0 3.5 - 5.0 g/dL [facility] Alkaline Phosphatase 51 39 - 117 U/L [facility] Blood Venous blood specimen / Unknown 01/07/2025 10:06 AM EDT 01/07/2025 11:22 AM EDT us Shivani Reynanitish LAB BLOOD ORDERABLES Final R esult Performing Organization Address [facility] Co de Phone Number [facility] [address] [place] [phone] * Lipid Panel, Standard (01/07/2025 10:06 AM EDT) Triglycerides 67 <150 mg/dL [facility] Comment:Desirable Triglyceri de: less than 150 mg/dLBorderline High Triglyceride 150-199 mg/dLHigh Triglyceride: 200-499 mg/dLVery High Triglyceride: greater than or equal to 5OO mg/dL Cholesterol 165 <200 mg/dL [facility] Comment:Desirable Cholestero l: less than 200 mg/dLBorderline High Cholesterol: 200-239 mg/dLHigh Cholesterol: greater than 239 mg/dL LDL Cholesterol Calculated 97 <100 mg/dL [facility] Comment:Desirable LDL: less than 100 mg/dLNear Optimal/Above Optimal LDL: 110- 129 mg/dLBorderline High LDL: 130-159 mg/dLHigh LDL: 160-189 mg/dLVery High LDL: greater than or equal to 190 mg/dL HDL Cholesterol 55 >40 mg/dL [facility] Comment:Desirable HDL: great er than 40 mg/dL Note: This HDL assay may give artificially low results in patients with liver disease. Blood Venous blood specimen / Unknown 01/07/2025 10:06 AM EDT 01/07/2025 11:22 AM EDT Shivani Nikki LAB BLOOD ORDERABLES Final R esult Performing Organization Address [facility]/ZIP Co de Phone Number [facility] [address] [place] [phone] * (ABNORMAL) Basic Metabolic Panel (01/07/2025 10:06 AM EDT) Sodium 141 135 - 145 mmol/L [facility] Potassium 4.2 3.3 - 5.1 mmol/L [facility] Comment:Slight Hemolysis.Int erpret result with caution. Chloride 104 96 - 108 mmol/L [facility] Carbon Dioxide 30(H) 22 - 29 mmol/L [facility] Anion Gap 11(L) 12 - 20 [facility] Urea Nitrogen (BUN) 11 9 - 16 mg/dL [facility] Creatinine, Serum 0.58 0.5 - 1.4 mg/dL [facility] Estimated Glomerular Filt Rate >60 [facility] Comment:Chronic Kidney Disea se: Estimated GFR < 60 mL/min/1.78h2Xrbiln Kidney Disease: Estimated GFR < 15 mL/min/1.73m2 Glucose 82 60 - 115 mg/dL [facility] Calcium 8.7 8.4 - 10.2 mg/dL [facility] Blood Venous blood specimen / Unknown 01/07/2025 10:06 AM EDT 01/07/2025 11:22 AM EDT Shivani Jordan DO LAB BLOOD ORDERABLES Final R esult [facility] [address] [place] [phone] * Pap Smear (03/29/2024 8:30 AM EDT) 03/29/2024 8:30 AM EDT 03/30/2024 10:04 AM EDT Narrative [facility] - 04/03/2024 8:18 AM EST ----- ------- Name: Emerson QuinteroNazanin Age/Sex: 38/F : 1985 Unit#: [id number] Attend Dr: Terell Collazo MD Re03/29/24 Status: DEP REF Location: HOTerrieLNP Disch: ----- ------- SPEC : [id number] RECD: 03/30/24 STATUS: EZEQUIEL WEINSTEIN NUM: [id number] MATTHEW: 03/29/[address] [facility] [address]: Terell Collazo MD ENTERED: 03/30/24 SP [...] Received ThinPrep-Cervical Copies To: Shivani Jordan DO [address] [address] Terell Collazo MD [facility] [address] [place] [address] Drive [address] [place] [phone] ----- ------- Signed (signature on file) MAXIMILIANO Meza (ASCP) 04/03/24 0818 ----- ------- END OF REPORT Generic External Data Provider LAB CYTOLOGY ORDE RABLES Final Result Performing Organization Address [facility]/ZIP Co de Phone Number [facility] [address] [place] [phone] * HPV mRNA E6/E7 w/Reflex to HPV Genotypes 16, 18/45 (03/28/2024 12:00 AM EDT) Historical Provider MD LAB CYTOLOGY ORDERABLES F inal Result Performing Organization Address [facility] Co de Phone Number [facility] [address] [place] [phone] * BI Mammogram Diagnostic Tomosynthesis Bilateral (01/02/2024 1:42 PM EDT) Anatomical Region Laterality Modality Breast Bilateral Mammography 01/02/2024 1:42 PM EDT Narrative 01/02/2024 2:43 PM EDT [facility] [address] [place] [address] Mammography Report Signed Patient: Nazanin Braga MR#: [id number] : 1985 Acct:[id number] Age/Sex: 38 / F ADM Date: 01/02/24 Loc: HOTerrieMAMMO Attending Dr: Shivani Jordan DO Ordering Physician: Shivani Jordan DO Results: 1N egative Date of Service: 01/02/24 Follow Up: 1 Year From Orig inal Mammogram Procedure(s): MM tomosynthesis diagnostic BI Accession Number(s): [id number] cc: Shivani Jordan DO EXAMINATION: MM DIAGNOSTIC [...] in OV> 01/02/24 1439 DD/ 1342 TD/TT: Business Mgr: Procedure Note Donotuseinterpreter, Image - 01/02/2024 [facility] [address] [place] [address] Dr. [place], [place] [address] Mammography Report Signed Patient: Grecia BragaR#: [id number] : 1985Acct:[id number] Age/Sex: 38 / FADM Date: 01/02/24 Loc: HO.MAMMO Attending Dr: Shivani Jordan DO Ordering Physician: Shivani Jordanults: 1N egative Date of Service: 01/02/24Follow Up: 1 Year From [facility] ina Mammogram Procedure(s): MM tomosynthesis diagnostic BI Accession Number(s): [id number] cc: hSivani Jordan DO EXAMINATION: MM DIAGNOSTIC DIGITAL BREAST [...] in OV> 01/02/24 1439 DD/ 1342 TD/TT: Business Mgr: Shivani Jordan DO IMG BI PROCEDURES Final Resu lt from Last 3 Months or Most Recently Relevant to Health Maintenance Insurance [facility] [place] * Guarantor: Abelardonikita QuinteroNazanin quinonez Account Type Relation to Patient Date of Phone Billing Address Personal/[place] [address] Care Teams Establishment Guide Relationship Specialty Start Date End Date Shivani Jordan DO [address] [place] [address] PCP - General Family Medicine 05/30/18
--- OUTSIDE RECORDS SUMMARY | 2025-03-04 11:44 | XMS_ITS | Encounter Summary ---
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 Pt is on recall. Please contact pt at [phone] documented in this encounter Plan of Treatment Not on file documented as of this encounter Visit Diagnoses Not on filedocumented in this encounter Additional Health Concerns Assessment Noted Time PHQ-9 Depression Total Score: 0 06/02/19 23 9:59 AM EST documented as of this encounter Care Teams Ballistic Expert Relationship Specialty Start Date End Date Shivani Jordan DO [address] [place] [address] PCP - General Family Medicine 05/30/18 documented as of this encounter
--- OUTSIDE RECORDS SUMMARY | 2025-03-04 11:44 | XMS_ITS | Encounter Summary ---
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 03/31/2023 9:43 AM EDT 03/31/2023 11:25 AM EDT Shivani Jordan DO LAB BLOOD ORDERABLES Final R esult Performing Organization Address [facility] Co de Phone Number [facility] [address] [place] [phone] * Hepatitis C Antibody with Reflex to HCV, RNA, Quantitative, Real-Time PCR (03/31/2023 9:43 AM EDT) Hepatitis C Antibody Nonreactive Nonreactive [facility] Comment:Antibodies to HCV no t detected; does not exclude early acuteHCV infection. 03/31/2023 9:43 AM EDT 03/31/2023 11:25 AM EDT Shivani Jordan DO LAB BLOOD ORDERABLES Final R esult Performing Organization Address City/[facility]/ZIP Co de Phone Number [facility] [address] [place] [phone] * Hepatitis B Surface Antibody, Qualitative (03/31/2023 9:43 AM EDT) ~Hepatitis B Surface Antibody NONREACTIVE Nonreactive [facility] Comment:Nonreactive: < 8.00 mIU/mL 03/31/2023 9:43 AM EDT 03/31/2023 11:25 AM EDT Sihvani Jordan DO LAB BLOOD ORDERABLES Final R esult [facility] [address] [place] [phone] * Syphilis Screen (03/31/2023 9:43 AM EDT) Syphilis Screen Nonreactive Nonreactive [facility] 03/31/2023 9:43 AM EDT 03/31/2023 11:25 AM EDT Shivani Jordan DO LAB BLOOD ORDERABLES Final R esult Performing Organization Address City/[facility]/ZIP Co de Phone Number [facility] [address] [place] [phone] * Culture, Urine, Routine (01/03/2023 12:00 AM EDT) Urine specimen obtained by clean catch procedure / Unknown 01/03/2023 01/03/2023 Comment:[facility] Narrative [facility] - 01/06/2023 8:28 AM EDT Escherichia coli Quant 50,000 to 100,000 cfu/mL Escherichia coli: Ampicillin 8(S) Escherichia coli: Ceftriaxone <=0.25(S) Escherichia coli: Gentamicin <=1(S) Escherichia coli: Levofloxacin <=0.12(S) Escherichia coli: Nitrofurantoin <=16(S) Escherichia coli: Trimethoprim/Sulfamethoxazole <=20(S) Specimen Source: Urine clean catch Fernie Name MD LAB MICROBIOLOGY - GENERAL ORDER ADELINA Final Result [facility] [address] [place] [phone] documented in this encounter Visit Diagnoses Diagnosis Vaginal candidiasis- Primary Candidiasis of vulva and vagina documented in this encounter Additional Health Concerns Assessment Noted Time PHQ-9 Depression Total Score: 0 06/02/19 23 9:59 AM EST documented as of this encounter Care Teams Cooper Helper Relationship Specialty Start Date End Date Shivani Jordan DO [address] [place] [phone] PCP - General Family Medicine 05/30/18 documented as of this encounter
--- OUTSIDE RECORDS SUMMARY | 2025-03-04 11:44 | XMS_ITS | Encounter Summary ---
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
--- OUTSIDE RECORDS SUMMARY | 2025-03-04 11:44 | XMS_ITS | Encounter Summary ---
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
--- OUTSIDE RECORDS SUMMARY | 2025-03-04 11:44 | XMS_ITS | Encounter Summary ---
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
== END ==
LOC: HO.CARD 10:05
PROVIDERS: PCP Family Medicine; Visit Provider Family Medicine
DX: I34.1 Nonrheumatic mitral (valve) prolapse (principal)
CPT/HCPCS: 93306

== ENCOUNTER → 2025-03-04 10:08 | Outpatient (BNV) | payer OTHER, SELFPAY | PROVIDERS: PCP Family Medicine; Visit Provider Internal Medicine Cardiovascular Disease | DX: I34.1 Nonrheumatic mitral (valve) prolapse (principal) | CPT/HCPCS: 93306 ==

== ENCOUNTER 2025-04-29 13:58 | Outpatient (REF) | payer OTHER, SELFPAY ==
--- NOTE | ~2025-04-29 | US_ITS ---
EXAMINATION: US PELVIS CLINICAL INFORMATION: D25.9 - Leiomyoma of uterus, unspecified COMPARISON: Previous pelvic ultrasounds most recently March 2024 TECHNIQUE: Ultrasound of the pelvis is performed using both transabdominal and transvaginal transducers along with Doppler. Transvaginal imaging is performed due to inadequate visualization transabdominally. FINDINGS: Uterus: The uterus is retroverted and measures 9 x 5.2 x 6.1 cm. The double wall endometrial thickness is 8 mm. Trace fluid in the endometrial cavity. Slight irregularity of the endometrial surface, for example image 80 and 81 of 99. This measures 3 mm. Cannot exclude a small endometrial polyp. The uterus is smooth in contour. 2.5 x 1.6 x 2.4 cm subserosal anterior uterine body fibroid. Previously this measured 2.2 x 1.1 x 1.7 cm and may be slightly increased in size. 2.3 x 1.4 x 1.5 cm anterior intramural fibroid. Previously this measured 1.1 x 0.7 x 1.1 cm and may be slightly increased in size. 3 x 2.3 x 2.6 cm intramural and submucosal fibroid. Previously this measured 1.7 x 2 x 2.2 cm and is increased in size. 1.4 x 0.9 x 1.3 cm intramural left uterine body fibroid. Previously this measured 0.9 x 0.7 x 0.7 cm and is slightly increased in size. Small nabothian cysts in the cervix. Adnexa: Both ovaries are visualized. There is normal color flow to the adnexa. There is no ovarian torsion. There is trace ascites. Right ovary measures 3.3 x 1.5 x 2.4 cm. Normal. Left ovary measures 4 x 2.4 x 3 cm. 2.6 x 2 x 2 cm complex cyst with internal echoes. This is new from previous exam. US/US pelvic and transvaginal IMPRESSION: Multiple uterine fibroids increased in size from prior exams. Largest measures 3 x 2.3 x 2.6 cm in the intramural and submucosal fundus. Small amount of fluid in the endometrial cavity. There is slight irregularity of the anterior endometrial surface measuring up to 3 mm. Cannot exclude a small polyp. 2 x 2.6 cm complex right ovarian cyst with internal echoes new from prior exams. Small amount of fluid in the pelvis. Consider short-term pelvic ultrasound follow-up in several months to see if endometrial and right ovarian findings persist. Electronically signed by: Lilia Bowie MD 04/29/2025 04:12 PM JESSIE ROSE
--- OUTSIDE RECORDS SUMMARY | 2025-04-29 17:24 | XMS_ITS | Encounter Summary ---
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
--- OUTSIDE RECORDS SUMMARY | 2025-04-29 17:24 | XMS_ITS | Clinical Summary ---
Author Organization [employer] Address [address] [facility] 7t [place] [address] Care Team Providers Care Tools Programmer Name Role Phone Zainab Jordanfer Primary Care Provider Allergies No known active allergies Medications olopatadine (Patanol) 0.1 % ophthalmic solutionIndicati ons:Allergic rhinitis, unspecified seasonality, unspecified trigger instill 1 drop by ophthalmic route 2 times every day into affected eye(s) at an interval of 6 to 8 hours as needed for ALLERGIES 5 mL 5 4 Active azelastine (Astelin) 0.1 % nasal spray Administer 1 spray into each nostril 2 times daily. Use in each nostril as directed 30 mL 11 4 Active fexofenadine (Halley) 180 MG tablet Take 1 tablet (180 mg) by mouth if needed each day (Allergies). 90 tablet 3 5 026 Active mometasone (Nasonex) 50 MCG/ACT nasal sprayIndications :Allergic rhinitis, unspecified seasonality, unspecified trigger Administer 2 sprays into each nostril Once per day. 17 g 5 026 Active polyethylene glycol, PEG, 3350 (Glycolax) 17 GM/SCOOP powderIndication s:Chronic constipation take (17G) by oral route every day mixed with 8 oz. water, juice, soda, coffee or tea as needed for Constipation 510 g 3 5 Active famotidine (Pepcid) 20 MG tablet Take 1 tablet (20 mg) by mouth at bedtime. 90 tablet 3 5 026 Active diphenhydrAMINE (BENADryl) 25 MG tablet Take 1 tablet (25 mg) by mouth every 6 (six) hours if needed for itching or allergies. 30 tablet 1 5 Active EPINEPHrine (Epipen) 0.3 MG/0.3ML injection syringe Inject 0.3 mL (0.3 mg) as directed 1 (one) time if needed for anaphylaxis. Inject into upper leg. Call 911 after use. 2 each 1 5 026 Active hydrocortisone (Proctosol HC) 2.5 % rectal cream Insert into the rectum if needed in the morning and at bedtime for hemorrhoids. 28 g 3 5 Active baclofen (Lioresal) 10 MG tablet Take 1 tablet (10 mg) by mouth if needed in the morning, at noon, and at bedtime for muscle spasms. 60 tablet 1 5 Active Witch Olivia (Hemorrhoidal Hygiene) 50 % pads APPLY TOPICALLY TO THE AFFECTED AREA(S) NEEDED FOR irritation OR FOR HEMORRHOIDS 100 each 3 5 Active Active Problems Problem Noted Date Diagnosed Date [...] Encounters Date Type Department Care Team Description 04/29/2025 Orders Only [facility] External Provider, [facility] from Last 3 Months Immunizations Immunization Administration [...] is your housing situation today? 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 Not on file Not [...] 03/13/2014 Dental X-Ray: Full Mouth 06/24/2025 06/23/2022 Alcohol/Substance Use Screening 01/07/2026 01/07/2025 Depression Screening 01/07/2026 01/07/2025, 01/08/20 25 Disability Screening 01/07/2026 01/07/2025 Tobacco Screening 01/07/2026 01/07/2025 Mammogram 03/01/2026 03/01/2025, 08/0 09/2023, 01/02/2024 HPV/Cotest 03/28/2029 03/28/2024, 07/1 09/2021, 05/26/2018, Additional history exists Cervical Cancer Screening [...] Procedure Name Priority Date/Time Associated Diagnosis Comments US PELVIS TRANSVAGINAL Routine 5 2:17 PM EST BI MAMMOGRAM SCREENING TOMOSYNTHESIS BILATERAL Routine 03/01/2025 8:55 AM EDT Encounter for screening mammogram for malignant neoplasm of breast HEPATITIS C AB W/REFL TO HCV RNA, [...] 16, 18/45 Routine 03/28/2024 12:00 AM EDT PROPHYLAXIS - ADULT Routine 07/12/2022 1 0:00 AM EST Periodontal disease Dental calculus Gingival bleeding INTRAORAL - COMPLETE SERIES OF RADIOGRAPHIC IMAGES Routine 06/23/2022 10:00 AM EST COMPREHENSIVE ORAL EVALUATION - NEW OR ESTABLISHED PATIENT Routine 06/23/2022 10:00 AM EST from Last 3 Months or Most Recently Relevant to Health Maintenance Results * US Pelvis Transvaginal (04/29/2025 2:17 PM EST) Anatomical Region Laterality Modality Pelvis Ultrasound 04/29/2025 2:17 PM EST Narrative 04/29/2025 4:15 PM EST [place] [address] Ultrasound Report Signed Patient: Nazanin Braga MR#: [id number] : 1985 Acct:[id number] Age/Sex: 39 / F ADM Date: 04/29/25 Loc: HO.US Attending Dr: Terell Collazo MD Ordering Physician: Terell Collazo MD Date of Service: 04/29/25 Procedure(s): US pelvic and transvaginal Accession Number(s): [id number] cc: Shivani Jordan DO; Terell Collazo MD Reason for Exam: D25.9 - Leiomyoma of uterus, unspecified EXAMINATION: US PELVIS CLINICAL INFORMATION: D25.9 - Leiomyoma of uterus, unspecified COMPARISON: Previous pelvic ultrasounds most recently March 2024 TECHNIQUE: Ultrasound of the pelvis is performed using both transabdominal and transvaginal transducers along with Doppler. Transvaginal imaging is performed due to inadequate visualization transabdominally. FINDINGS: Uterus: The uterus is retroverted and measures 9 x 5.2 x 6.1 cm. The double wall endometrial thickness is 8 mm. Trace fluid in the endometrial cavity. Slight irregularity of the endometrial surface, for example image 80 and 81 of 99. This measures 3 mm. Cannot exclude a small endometrial polyp. The uterus is smooth in contour. 2.5 x 1.6 x 2.4 cm subserosal anterior uterine body fibroid. Previously this measured 2.2 x 1.1 x 1.7 cm and may be slightly increased in size. 2.3 x 1.4 x 1.5 cm anterior intramural fibroid. Previously this measured 1.1 x 0.7 x 1.1 cm and may be slightly increased in size. 3 x 2.3 x 2.6 cm intramural and submucosal fibroid. Previously this measured 1.7 x 2 x 2.2 cm and is increased in size. 1.4 x 0.9 x 1.3 cm intramural left uterine body fibroid. Previously this measured 0.9 x 0.7 x 0.7 cm and is slightly increased in size. Small nabothian cysts in the cervix. Adnexa: Both ovaries are visualized. There is normal color flow to the adnexa. There is no ovarian torsion. There is trace ascites. Right ovary measures 3.3 x 1.5 x 2.4 cm. Normal. Left ovary measures 4 x 2.4 x 3 cm. 2.6 x 2 x 2 cm complex cyst with internal echoes. This is new from previous exam. US/US pelvic and transvaginal IMPRESSION: Multiple uterine fibroids increased in size from prior exams. Largest measures 3 x 2.3 x 2.6 cm in the intramural and submucosal fundus. Small amount of fluid in the endometrial cavity. There is slight irregularity of the anterior endometrial surface measuring up to 3 mm. Cannot exclude a small polyp. 2 x 2.6 cm complex right ovarian cyst with internal echoes new from prior exams. Small amount of fluid in the pelvis. Consider short-term pelvic ultrasound follow-up in several months to see if endometrial and right ovarian findings persist. Electronically signed by: Lilia Bowie MD 04/29/2025 04:12 PM [facility] Dictated By: Lilia Bowie MD Signed By: <Electronically signed by Lilia Bowie MD in OV> 04/29/25 1612 DD/ 1417 TD/TT: 04/29/25 1512 Supervisor Doping: CORRINE Procedure Note Donotuseinterpreter, Image - 04/29/[address] [address] Ultrasound Report Signed Patient: Lawrence Braga#: [id number] : 1985Acct:[id number] Age/Sex: 39 / FADM Date: 04/29/25 Loc: HO.US Attending Dr: Terell Collazo MD Ordering Physician: Terell Collazo MD Date of Service: 04/29/25 Procedure(s): US pelvic and transvaginal Accession Number(s): [id number] cc: Shivani Jordan DO; Terell Collazo MD Reason for Exam: D25.9 - Leiomyoma of uterus, unspecified EXAMINATION: US PELVIS CLINICAL INFORMATION: D25.9 - Leiomyoma of uterus, unspecified COMPARISON: Previous pelvic ultrasounds most recently March 2024 TECHNIQUE: Ultrasound of the pelvis is performed using both transabdominal and transvaginal transducers along with Doppler. Transvaginal imaging is performed due to inadequate visualization transabdominally. FINDINGS: Uterus: The uterus is retroverted and measures 9 x 5.2 x 6.1 cm. The double wall endometrial thickness is 8 mm. Trace fluid in the endometrial cavity. Slight irregularity of the endometrial surface, for example image 80 and 81 of 99. This measures 3 mm. Cannot exclude a small endometrial polyp. The uterus is smooth in contour. 2.5 x 1.6 x 2.4 cm subserosal anterior uterine body fibroid. Previously this measured 2.2 x 1.1 x 1.7 cm and may be slightly increased in size. 2.3 x 1.4 x 1.5 cm anterior intramural fibroid. Previously this measured 1.1 x 0.7 x 1.1 cm and may be slightly increased in size. 3 x 2.3 x 2.6 cm intramural and submucosal fibroid. Previously this measured 1.7 x 2 x 2.2 cm and is increased in size. 1.4 x 0.9 x 1.3 cm intramural left uterine body fibroid. Previously this measured 0.9 x 0.7 x 0.7 cm and is slightly increased in size. Small nabothian cysts in the cervix. Adnexa: Both ovaries are visualized. There is normal color flow to the adnexa. There is no ovarian torsion. There is trace ascites. Right ovary measures 3.3 x 1.5 x 2.4 cm. Normal. Left ovary measures 4 x 2.4 x 3 cm. 2.6 x 2 x 2 cm complex cyst with internal echoes. This is new from previous exam. US/US pelvic and transvaginal IMPRESSION: Multiple uterine fibroids increased in size from prior exams. Largest measures 3 x 2.3 x 2.6 cm in the intramural and submucosal fundus. Small amount of fluid in the endometrial cavity. There is slight irregularity of the anterior endometrial surface measuring up to 3 mm. Cannot exclude a small polyp. 2 x 2.6 cm complex right ovarian cyst with internal echoes new from prior exams. Small amount of fluid in the pelvis. Consider short-term pelvic ultrasound follow-up in several months to see if endometrial and right ovarian findings persist. Electronically signed by: Lilia Bowie MD 04/29/2025 04:12 PM [facility] Dictated By: Lilia Bowie MD Signed By: <Electronically signed by Lilia Bowie MD in OV> 04/29/25 1612 DD/ 1417 TD/TT: 04/29/25 1512 Supervisor Doping: CORRINE Authorlake Provider Result Type Result Stat [facility] External Provider IMG US PROCEDURES Final Result * BI Mammogram Screening Tomosynthesis Bilateral (03/01/2025 8:55 AM EDT) Anatomical Region Laterality Modality Breast Bilateral Mammography 03/01/2025 8:55 AM EDT Narrative 03/09/2025 1:40 PM EDT [facility] [address] [place], [place] [address] Mammography Report Signed Patient: Nazanin Braga MR#: [id number] : 1985 Acct:[id number] Age/Sex: 39 / F ADM Date: 03/01/25 Loc: MAMMO Attending Dr: Shivani Jordan DO Ordering Physician: Shivani Jordan DO Results: 1N egative Date of Service: 03/01/25 Follow Up: 1 Year From Orig inal Mammogram Procedure(s): MM tomosynthesis screening BI Accession Number(s): [id number] cc: Shivani Jordan DO Reason For Exam: screening mammo EXAMINATION: MM SCREENING DIGITAL BREAST TOMOSYNTHESIS, BILATERAL CLINICAL INFORMATION: Screening. Asymptomatic. COMPARISON: Mammography: Comparison is made with available priors TECHNIQUE: Digital breast mammography with tomosynthesis is performed in both the craniocaudal and mediolateral oblique views along with computer-aided detection (CAD). FINDINGS: There are scattered areas of fibroglandular density. There are no significant masses, abnormal calcifications, or other abnormalities. MM/MM tomosynthesis screening BI IMPRESSION: No mammographic evidence of malignancy. ASSESSMENT: BI-RADS Category 1: Negative RECOMMENDATION: Routine annual mammography screening. 1 year F/U This examination should not preclude the clinical evaluation of a suspicious palpable abnormality. This patient's information was entered into a reminder system with a target due date for their next mammogram. Electronically signed by: Cristal Valdez DO 03/09/2025 01:37 PM EDT Dictated By: Cristal Valdez DO Signed By: <Electronically signed by Cristal Valdez DO in OV> 03/09/25 1337 DD/ 0855 TD/TT: 03/01/25 0908 Supervisor Doping: Procedure Note Donotuseinterpreter, Image - 03/09/2025 [facility] [address] [place] [address] Mammography Report Signed Patient: Pasquale BragaidyMR#: [id number] : 1985Acct:[id number] Age/Sex: 39 / FADM Date: 03/01/25 Loc: MARIE.MAMMO Attending Dr: Shivani Jordan DO Ordering Physician: Shivani Jordanults: 1N egative Date of Service: 03/01/25Follow Up: 1 Year From Orig inal Mammogram Procedure(s): MM tomosynthesis screening BI Accession Number(s): [id number] cc: Shivani Jordan DO Reason For Exam: screening mammo EXAMINATION: MM SCREENING DIGITAL BREAST TOMOSYNTHESIS, BILATERAL CLINICAL INFORMATION: Screening. Asymptomatic. COMPARISON: Mammography: Comparison is made with available priors TECHNIQUE: Digital breast mammography with tomosynthesis is performed in both the craniocaudal and mediolateral oblique views along with computer-aided detection (CAD). FINDINGS: There are scattered areas of fibroglandular density. There are no significant masses, abnormal calcifications, or other abnormalities. MM/MM tomosynthesis screening BI IMPRESSION: No mammographic evidence of malignancy. ASSESSMENT: BI-RADS Category 1: Negative RECOMMENDATION: Routine annual mammography screening. 1 year F/U This examination should not preclude the clinical evaluation of a suspicious palpable abnormality. This patient's information was entered into a reminder system with a target due date for their next mammogram. Electronically signed by: Cristal Valdez DO 03/09/2025 01:37 PM EDT RP Dictated By: Cristal Valdez DO Signed By: <Electronically signed by Cristal Valdez DO in OV> 03/09/25 1337 DD/ 0855 TD/TT: 03/01/25 0908 Supervisor Doping: Shivani Jordan DO IMG BI PROCEDURES Final Resu lt * Hepatitis C Antibody with Reflex to HCV, RNA, Quantitative, Real-Time PCR (01/07/2025 10:06 AM EDT) Hepatitis C Antibody GRAYZONE Nonreactive [facility] Comment:Antibodies to HCV ma y or may not be present. Suggest repeatanti-HCV in 4-6 weeks and/or HCV viral load if clinicallyindicated. Blood Venous blood specimen / Unknown 01/07/2025 10:06 AM EDT 01/07/2025 11:22 AM EDT Shivani Jordan DO LAB BLOOD ORDERABLES Final R esult [facility] [address] [place] [phone] * HIV-1/2 Antigen and Antibodies, Fourth Generation, with Reflexes (01/07/2025 10:06 AM EDT) HIV AB/AG Nonreactive Nonreactive [facility] Comment:HIV-1 p24 Ag and/or HIV-1/HIV-2 Ab not detected.A test result that is nonreactive does not exclude thepossibility of exposure to or infection with HIV-1 and/orHIV-2. Nonreactive results in this assay for individualswith prior exposure to HIV-1 and/or HIV-2 may be due toantigen and antibody levels that are below the limit ofdetection of this assay.The [employer] HIV Ag/Ab Combo assay result andsupplemental assay results should be interpreted inconjunction with the patient's clinical presentation,history and other laboratory results. If the results areinconsistent with clinical evidence, additional testing issuggested to confirm the result. Blood Venous blood specimen / Unknown 01/07/2025 10:06 AM EDT 01/07/2025 11:22 AM EDT us Shivani Jordan DO LAB BLOOD ORDERABLES Final R esult [facility] [address] [place] [phone] * Pap Smear (03/29/2024 8:30 AM EDT) 03/29/2024 8:30 AM EDT 03/30/2024 10:04 AM EDT Narrative [facility] - 04/03/2024 8:18 AM EST ----- ------- Name: Nazanin Braga Age/Sex: 38/F : 1985 Unit#: [id number] Attend Dr: Terell Collazo MD Re03/29/24 Status: DEP REF Location: LNP Disch: ----- ------- SPEC : [id number] RECD: 03/30/24 STATUS: EZEQUIEL WEINSTEIN NUM: [id number] MATTHEW: 03/29/24 [facility] DR: Terell Collazo MD ENTERED: 03/30/24 [...] Received ThinPrep-Cervical Copies To: Shivani Jordan DO [address] [address] Terell Collazo MD [facility] [address] [place] [address] ----- ------- Signed (signature on file) MAXIMILIANO Meza (ASCP) 04/03/24 0818 ----- ------- END OF REPORT Generic External Data Provider LAB CYTOLOGY ORDE RABLES Final Result Performing Organization Address City/[facility]/ZIP Co de Phone Number [facility] [address] [place] [address] [phone] * HPV mRNA E6/E7 w/Reflex to HPV Genotypes 16, 18/45 (03/28/2024 12:00 AM EDT) Historical Provider MD LAB CYTOLOGY ORDERABLES F inal Result Performing Organization Address [facility]/ZIP Co de Phone Number [facility] [address] [place] [address] [phone] from Last 3 Months or Most Recently Relevant to Health Maintenance Insurance [facility] [place] AD[place] Care Teams Tools Programmer Relationship Specialty Start Date End Date Shivani Jordan DO [address] [place] [phone] PCP - General Family Medicine 05/30/18
--- OUTSIDE RECORDS SUMMARY | 2025-04-29 17:24 | XMS_ITS | Encounter Summary ---
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
--- OUTSIDE RECORDS SUMMARY | 2025-04-29 17:24 | XMS_ITS | Encounter Summary ---
Author Organization [employer] Address [address] [facility] [address]t [place] [address] Care Team Providers Care Rattle Leak And Squeak Repairer Name Role Phone Shivani Jordan DO Primary Care Provider [phone] Reason for Visit * Reason Onset Date Comments Appointment Request 06/29/2023 Encounter Details Date Type Department Care Team ([facility] st Contact Info) Description 06/29/2023 Telephone [facility] [address] [place], [place] [phone] Shivani Jordan DO [address] [place], [place] [phone] Appointment Request Social History Tobacco Use Types [...] 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 Pt is on recall. Please contact pt at [phone] documented in this encounter Plan of Treatment Not on file documented as of this encounter Visit Diagnoses Not on filedocumented in this encounter Additional Health Concerns Assessment Noted Time PHQ-9 Depression Total Score: 0 06/02/19 23 9:59 AM EST documented as of this encounter Care Teams Rattle Leak And Squeak Repairer Relationship Specialty Start Date End Date Shivani Jordan DO [address] [place] [address] PCP - General Family Medicine 05/30/18 documented as of this encounter
--- OUTSIDE RECORDS SUMMARY | 2025-04-29 17:24 | XMS_ITS | Encounter Summary ---
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 on file Not on file documented as of this encounter Plan of Treatment Not on file documented as of this encounter Procedures Procedure Name Priority Date/Time Associated Diagnosis Comments US PELVIS TRANSVAGINAL Routine 04/29/2025 2:17 PM EST documented in this encounter Results * US Pelvis Transvaginal (04/29/2025 2:17 PM EST) Anatomical Region Laterality Modality Pelvis Ultrasound 04/29/2025 2:17 PM EST Narrative 04/29/2025 4:15 PM EST [place] [address] Ultrasound Report Signed Patient: Nazanin Braga MR#: [id number] : 1985 Acct:[id number] Age/Sex: 39 / F ADM Date: 04/29/25 Loc: .US Attending Dr: Terell Collazo MD Ordering Physician: Terell Collazo MD Date of Service: 04/29/25 Procedure(s): US pelvic and transvaginal Accession Number(s): [id number] cc: Shivani Jordan Marc J MD Reason for Exam: D25.9 - Leiomyoma [...] by: Lilia Bowie MD 04/29/2025 04:12 PM [facility] Dictated By: Lilia Bowie MD Signed By: <Electronically signed by Lilia Bowie MD in OV> 04/29/25 1612 DD/ 1417 TD/TT: 04/29/25 1512 Radioisotope Technologist: CORRINE Procedure Note Donotuseinterpreter, Image - 04/29/[address] [address] Ultrasound Report Signed Patient: Lawrence Braga#: [id number] : 1985Acct:[id number] Age/Sex: 39 / FADM Date: 04/29/25 Loc: HO.US Attending Dr: Terell Collazo MD Ordering Physician: Terell Collazo MD Date of Service: 04/29/25 Procedure(s): US pelvic and transvaginal Accession Number(s): [id number] cc: Shivani Jordan DO; Terell Collazo MD [...] by: Lilia Bowie MD 04/29/2025 04:12 PM [facility] Dictated By: Lilia Bowie MD Signed By: <Electronically signed by Lilia Bowie MD in OV> 04/29/25 1612 DD/ 1417 TD/TT: 04/29/25 1512 Radioisotope Technologist: CORRINE [facility] External Provider IMG US PROCEDURES Final Result documented in this encounter Visit Diagnoses Not on filedocumented in this encounter Additional Health Concerns Assessment Noted Time PHQ-9 Depression Total Score: 0 01/08/20 25 9:45 AM EDT documented as of this encounter Care Teams Model And Mold Maker Relationship Specialty Start Date End Date Shivani Jordan DO [address] [place] [phone] PCP - General Family Medicine 05/30/18 documented as of this encounter
--- OUTSIDE RECORDS SUMMARY | 2025-04-29 17:24 | XMS_ITS | Encounter Summary ---
Author Organization [employer] Address [address] [facility] 7[address] [place] [address] Care Team Providers Care Foundry Manager Name Role Phone Zainab Jordanfer Primary Care Provider [phone] Encounter Details Date Type Department Care Team (Late st Contact Info) Description 07/26/[address] 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
--- OUTSIDE RECORDS SUMMARY | 2025-04-29 17:24 | XMS_ITS | Encounter Summary ---
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 Not on file Not [...] EDT) Hepatitis B Surface Ag Negative Negative [facility] 03/31/2023 9:43 AM EDT 03/31/2023 11:25 AM EDT Shivani Jordan DO LAB BLOOD ORDERABLES Final R esult Performing Organization Address [facility] Co de Phone Number [facility] [address] [place] [phone] * Hepatitis C Antibody with Reflex to HCV, RNA, Quantitative, Real-Time PCR (03/31/2023 9:43 AM EDT) Hepatitis C Antibody Nonreactive Nonreactive [facility] Comment:Antibodies to HCV no t detected; does not exclude early acuteHCV infection. 03/31/2023 9:43 AM EDT 03/31/2023 11:25 AM EDT Shivani Jordan DO LAB BLOOD ORDERABLES Final R esult Performing Organization Address City/[facility]/ZIP Co de Phone Number [facility] [address] [place] [phone] * Hepatitis B Surface Antibody, Qualitative (03/31/2023 9:43 AM EDT) ~Hepatitis B Surface Antibody NONREACTIVE Nonreactive [facility] Comment:Nonreactive: < 8.00 mIU/mL 03/31/2023 9:43 AM EDT 03/31/2023 11:25 AM EDT Shivani Jordan DO LAB BLOOD ORDERABLES Final R esult [facility] [address] [place] [phone] * Syphilis Screen (03/31/2023 9:43 AM EDT) Syphilis Screen Nonreactive Nonreactive [facility] 03/31/2023 9:43 AM EDT 03/31/2023 11:25 AM EDT Shivani Jordan DO LAB BLOOD ORDERABLES Final R esult Performing Organization Address City/[facility]/ZIP Co de Phone Number [facility] [address] [place] [phone] * Culture, Urine, Routine (01/03/2023 12:00 AM EDT) Urine specimen obtained by clean catch procedure / Unknown 01/03/2023 01/03/2023 Comment:[facility] Narrative [facility] - 01/06/2023 8:28 AM EDT Escherichia coli Quant 50,000 to 100,000 cfu/mL Escherichia coli: Ampicillin 8(S) Escherichia coli: Ceftriaxone <=0.25(S) Escherichia coli: Gentamicin <=1(S) Escherichia coli: Levofloxacin <=0.12(S) Escherichia coli: Nitrofurantoin <=16(S) Escherichia coli: Trimethoprim/Sulfamethoxazole <=20(S) Specimen Source: Urine clean catch Fernie Name MD LAB MICROBIOLOGY - GENERAL ORDER ADELINA Final Result [facility] [address] [place] [phone] documented in this encounter Visit Diagnoses Diagnosis Vaginal candidiasis- Primary Candidiasis of vulva and vagina documented in this encounter Additional Health Concerns Assessment Noted Time PHQ-9 Depression Total Score: 0 06/02/19 23 9:59 AM EST documented as of this encounter Care Teams Shoe Cleaner Relationship Specialty Start Date End Date Shivani Jordan DO [address] [place] [phone] PCP - General Family Medicine 05/30/18 documented as of this encounter
== END 2025-04-29 13:59 | disposition home or self-care (01) ==
LOC: HO.US 13:58
PROVIDERS: PCP Family Medicine; Visit Provider Obstetrics & Gynecology
DX: D25.9 Leiomyoma of uterus, unspecified (principal)
CPT/HCPCS: 76830; 76856

== ENCOUNTER → 2025-04-29 14:04 | Outpatient (BNV) | payer OTHER, SELFPAY | PROVIDERS: PCP Family Medicine; Visit Provider Radiology Diagnostic Radiology | DX: D25.1 Intramural leiomyoma of uterus (principal); D25.2 Subserosal leiomyoma of uterus; N83.201 Unspecified ovarian cyst, right side | CPT/HCPCS: 76830; 76856 ==

== ENCOUNTER 2025-05-21 11:16 | Outpatient (AMB) | payer OTHER, SELFPAY ==
--- NOTE | 2025-05-21 11:29 | A.OFFVIS_ITS ---
Vital Signs 05/21/25 11:34 Height 5 ft 8 in Weight 160 lb BMI 24.3 BP 102/66 Intake Visit Reasons: U/S f/u Development Expert Required: Yes Development Expert Language: Coppersmith Helper Services: Development Expert Present (in person) Development Expert Name: Marylou HOLLOWAY Information Interpreted: non-clinical & clinical Automobile Body Repairer: Automobile Body Repairer Present Accompanied by: Self / Same As Patient Allergies No Known Allergies Allergy (Verified 05/21/25 11:35) Is last menstrual period known: Yes Last menstrual period: 04/30/25 Post menopausal: No Patient : No Do you need a note to return to daycare/school/sports/work: Yes (for surgery on tuesday) HPI Comments Details: The patient is schedule for an ultrasound follow-up appointment done recently which showed the following: Uterus: The uterus is retroverted and measures 9 x 5.2 x 6.1 cm. The double wall endometrial thickness is 8 mm. Trace fluid in the endometrial cavity. Slight irregularity of the endometrial surface, for example image 80 and 81 of 99. This measures 3 mm. Cannot exclude a small endometrial polyp. The uterus is smooth in contour. 2.5 x 1.6 x 2.4 cm subserosal anterior uterine body fibroid. Previously this measured 2.2 x 1.1 x 1.7 cm and may be slightly increased in size. 2.3 x 1.4 x 1.5 cm anterior intramural fibroid. Previously this measured 1.1 x 0.7 x 1.1 cm and may be slightly increased in size. 3 x 2.3 x 2.6 cm intramural and submucosal fibroid. Previously this measured 1.7 x 2 x 2.2 cm and is increased in size. 1.4 x 0.9 x 1.3 cm intramural left uterine body fibroid. Previously this measured 0.9 x 0.7 x 0.7 cm and is slightly increased in size. Small nabothian cysts in the cervix. Adnexa: Both ovaries are visualized. There is normal color flow to the adnexa. There is no ovarian torsion. There is trace ascites. Right ovary measures 3.3 x 1.5 x 2.4 cm. Normal. Left ovary measures 4 x 2.4 x 3 cm. 2.6 x 2 x 2 cm complex cyst with internal echoes. This is new from previous exam. 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 Sexually active: Yes Sexual orientation: Straight/Heterosexual Gender identity: Female Female Reproductive History Menstrual Age of Menarche: 9 Duration of menses: 6-7 days Date of last menstrual period: 04/30/25 Total pregnancies: 2 Full term: 2 Review of Systems Card Reports as per HPI and Reports no additional complaints Resp Reports as per HPI and Reports no additional complaints GI Reports as per HPI and Reports no additional complaints Reports as per HPI Physical Exam Vital Signs: Last Vital Signs BP 102/66 05/21/25 11:34 BMI result Body Mass Index 24.3 Const General: cooperative, healthy appearing and comfortable Resp Effort & Inspection: normal respiratory effort Auscultation: clear to auscultation bilaterally Percussion: percussion normal Cardio Palpation: normal PMI Rate: regular rate Rhythm: regular rhythm Heart sounds: no murmurs and no rubs Peripheral pulses: Peripheral pulses 2+ throughout GI Inspection: Yes normal to inspection Palpation (GI): Soft to palpation, nontender, no guarding, not rigid and No hepatosplenomegaly present Percussion: Yes normal to percussion Auscultation: normal bowel sounds Rectal Exam - Female: deferred Assessment & Plan Assessment & Plan (1) Uterine myoma: Code(s): D25.9 - Leiomyoma of uterus, unspecified Category: Medical Plan: Discussed with the patient the findings on pelvic ultrasound & the risk of myosarcoma; in addition reviewed with the patient that malignancy and pre malignancy cannot be ruled out without hysterectomy for pathological evaluation ; furthermore, explained to the patient the limitation of pelvic ultrasound and endometrial biopsy in the setting. Discussed with the patient the typical symptoms that are caused by myomas including but not limited to pelvic pain, pressure symptoms, abnormal uterine bleeding. In addition discussed with the patient options of treatment for myomas including: Serial ultrasounds periodically to follow-up on the size of the myoma while targeting the treatment against fibroids related symptoms ( control pills, Mirena IUD, progesterone treatment, GnRH agonist/antagonist, uterine artery embolization or endometrial ablation) versus surgical treatment including hysterectomy and or myomectomy. All pros and cons, risks and benefits of all options were discussed with the patient. The patient understands that delay in surgical treatment in case of myosarcoma can affect her prognosis, after further discussion, the patient decided to think about it and get back to us next visit meanwhile a follow-up pelvic ultrasound ordered in three-months. Instructions given the patient is schedule an ultrasound and a follow-up appointment within three-month. (2) Abnormal ultrasound of endometrium: Code(s): R93.5 - Abnormal findings on diagnostic imaging of other abdominal regions, including retroperitoneum Category: Medical Plan: Discussed with the patient the finding on ultrasound recommended hysteroscopy D&C possible polypectomy/myomectomy. Discussed with the patient the procedure , all benefits and risks including but not limited to inability to complete the procedure , insufficient endometrial tissue for a complete evaluation of the endometrial cavity , bleeding, infection, possible need for blood transfusion with all its risk ( HIV,syphilis, Hepatitis, anaphylaxis shock, others..), injury to bladder, rectum, possible need for laparoscopy/laparotomy or hysterectomy. The patient verbalized understanding and signed the consent. Instructions given the patient to stay NPO after midnight the day prior to the procedure and to take only the specific medication (s) discussed the morning of the surgical procedure and to schedule a 2 week postoperative appointment (3) Complex ovarian cyst: Code(s): N83.299 - Other ovarian cyst, unspecified side Category: Medical Plan: Discussed with the patient the complex ovarian cyst by ultrasound. Discussed with the patient the Ultrasound findings, the main limitation of transvaginal ultrasonography alone as a diagnostic tool to distinguish benign from malignant masses relates to its lack of specificity and low positive predictive value for cancer. The differential diagnosis discussed with the patient includes the following but not limited to: benign and malignant gynecological and non-gynecological causes. Discussed with the patient options of treatment , including laparoscopy ovarian cystectomy/oophorectomy vs. expectant management with repeat US in repeating pelvic US in 12 weeks from previous US. If the ovarian complex cyst is persistent larger and / or more complex looking, will refer to gynecologic Oncology. All pros, cons, risks and benefits of each approach were discussed with the patient including but not limited to a delay in the diagnosis and treatment of ovarian cancer affecting the prognosis; The patient decided to go ahead with expectant management. Instructions given the patient to schedule a 3 months follow-up ultrasound appointment. All questions were answered & the patient verbalized understanding and agreed with the plan. Orders: Orders US pelvic and transvaginal 3 Months D25.9 - Leiomyoma of uterus, unspecified, N83.299 - Other ovarian cyst, unspecified side Coding Level of Care Code Est Pt Level 3 (69539) Diagnoses Uterine myoma D25.9 Abnormal ultrasound of endometrium R93.5 Complex ovarian cyst N83.299
[2025-05-21 11:34] VITALS: BP 102/66; BMI 24.3
--- OUTSIDE RECORDS SUMMARY | 2025-05-21 12:38 | XMS_ITS | Encounter Summary ---
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
--- OUTSIDE RECORDS SUMMARY | 2025-05-21 12:38 | XMS_ITS | Encounter Summary ---
Author Organization 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
--- OUTSIDE RECORDS SUMMARY | 2025-05-21 12:38 | XMS_ITS | Encounter Summary ---
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
--- OUTSIDE RECORDS SUMMARY | 2025-05-21 12:38 | XMS_ITS | Encounter Summary ---
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 Not on file Not [...] EDT) Hepatitis B Surface Ag Negative Negative [facility] 03/31/2023 9:43 AM EDT 03/31/2023 11:25 AM EDT Shivani Jordan DO LAB BLOOD ORDERABLES Final R esult Performing Organization Address [facility] Co de Phone Number [facility] [address] [place] [phone] * Hepatitis C Antibody with Reflex to HCV, RNA, Quantitative, Real-Time PCR (03/31/2023 9:43 AM EDT) Hepatitis C Antibody Nonreactive Nonreactive [facility] Comment:Antibodies to HCV no t detected; does not exclude early acuteHCV infection. 03/31/2023 9:43 AM EDT 03/31/2023 11:25 AM EDT Shivani Jordan DO LAB BLOOD ORDERABLES Final R esult Performing Organization Address City/[facility]/ZIP Co de Phone Number [facility] [address] [place] [phone] * Hepatitis B Surface Antibody, Qualitative (03/31/2023 9:43 AM EDT) ~Hepatitis B Surface Antibody NONREACTIVE Nonreactive [facility] Comment:Nonreactive: < 8.00 mIU/mL 03/31/2023 9:43 AM EDT 03/31/2023 11:25 AM EDT Shivani Jordan DO LAB BLOOD ORDERABLES Final R esult [facility] [address] [place] [phone] * Syphilis Screen (03/31/2023 9:43 AM EDT) Syphilis Screen Nonreactive Nonreactive [facility] 03/31/2023 9:43 AM EDT 03/31/2023 11:25 AM EDT Shivani Jordan DO LAB BLOOD ORDERABLES Final R esult Performing Organization Address City/[facility]/ZIP Co de Phone Number [facility] [address] [place] [phone] * Culture, Urine, Routine (01/03/2023 12:00 AM EDT) Urine specimen obtained by clean catch procedure / Unknown 01/03/2023 01/03/2023 Comment:[facility] Narrative [facility] - 01/06/2023 8:28 AM EDT Escherichia coli Quant 50,000 to 100,000 cfu/mL Escherichia coli: Ampicillin 8(S) Escherichia coli: Ceftriaxone <=0.25(S) Escherichia coli: Gentamicin <=1(S) Escherichia coli: Levofloxacin <=0.12(S) Escherichia coli: Nitrofurantoin <=16(S) Escherichia coli: Trimethoprim/Sulfamethoxazole <=20(S) Specimen Source: Urine clean catch Fernie Name MD LAB MICROBIOLOGY - GENERAL ORDER ADELINA Final Result [facility] [address] [place] [phone] documented in this encounter Visit Diagnoses Diagnosis Vaginal candidiasis- Primary Candidiasis of vulva and vagina documented in this encounter Additional Health Concerns Assessment Noted Time PHQ-9 Depression Total Score: 0 06/02/19 23 9:59 AM EST documented as of this encounter Care Teams Civil Rights Attorney Relationship Specialty Start Date End Date Shivani Jordan DO [address] [place] [phone] PCP - General Family Medicine 05/30/18 documented as of this encounter
--- OUTSIDE RECORDS SUMMARY | 2025-05-21 12:38 | XMS_ITS | Encounter Summary ---
Author Organization [employer] Address [address] [facility] [address]t [place] [address] Care Team Providers Care Director Business Development Name Role Phone Shivani Jordan DO Primary Care Provider [phone] Reason for Visit * Reason Onset Date Comments Appointment Request 06/29/2023 Encounter Details Date Type Department Care Team ([facility] st Contact Info) Description 06/29/2023 Telephone [facility] [address] [place], [place] [phone] Shivani Jordan DO [address] [place], [place] [phone] Appointment Request Social History Tobacco Use Types [...] 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 Pt is on recall. Please contact pt at [phone] documented in this encounter Plan of Treatment Not on file documented as of this encounter Visit Diagnoses Not on filedocumented in this encounter Additional Health Concerns Assessment Noted Time PHQ-9 Depression Total Score: 0 06/02/19 23 9:59 AM EST documented as of this encounter Care Teams Director Business Development Relationship Specialty Start Date End Date Shivani Jordan DO [address] [place] [address] PCP - General Family Medicine 05/30/18 documented as of this encounter
--- OUTSIDE RECORDS SUMMARY | 2025-05-21 12:38 | XMS_ITS | Clinical Summary ---
Author Organization [employer] Address [address] [facility] [address] [place] [address] Care Team Providers Care Roll Shop Supervisor Name Role Phone Zainab Jordanfer Primary Care [...] Department Care Team Description 04/29/2025 Orders Only [facility] External Provider, 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 Not on [...] PM EST Narrative 04/29/2025 4:15 PM EST [place] [address] Ultrasound Report Signed Patient: Nazanin Braga MR#: [id number] : 1985 Acct:[id number] Age/Sex: 39 / F ADM Date: 04/29/25 Loc: HO.US Attending Dr: Terell Collazo MD Ordering Physician: Terell Collazo MD Date of Service: 04/29/25 Procedure(s): US pelvic and transvaginal Accession Number(s): [id number] cc: Shivani Jordan DO; Terell Collazo MD [...] by: Lilia Bowie MD 04/29/2025 04:12 PM [facility] Dictated By: Lilia Bowie MD Signed By: <Electronically signed by Lilia Bowie MD in OV> 04/29/25 1612 DD/ 1417 TD/TT: 04/29/25 1512 Wirer Maintenance: CORRINE Procedure Note Donotuseinterpreter, Image - 04/29/[address] [address] Ultrasound Report Signed Patient: Lawrence Braga#: [id number] : 1985Acct:[id number] Age/Sex: 39 / FADM Date: 04/29/25 Loc: HO.US Attending Dr: Terell Collazo MD Ordering Physician: Terell Collazo MD Date of Service: 04/29/25 Procedure(s): US pelvic and transvaginal Accession Number(s): [id number] cc: Shivani Jordan DO; Terell Collazo MD [...] by: Lilia Bowie MD 04/29/2025 04:12 PM [facility] Dictated By: Lilia Bowie MD Signed By: <Electronically signed by Lilia Bowie MD in OV> 04/29/25 1612 DD/ 1417 TD/TT: 04/29/25 1512 Wirer Maintenance: CORRINE Authorlake Provider Result Type Result [facility] External Provider IMG US PROCEDURES Final Result * BI Mammogram Screening Tomosynthesis Bilateral (03/01/2025 8:55 AM EDT) Anatomical Region Laterality Modality Breast Bilateral Mammography 03/01/2025 8:55 AM EDT Narrative 03/09/2025 1:40 PM EDT [facility] [address] [place], [place] [address] Mammography Report Signed Patient: Nazanin Braga MR#: [id number] : 1985 Acct:[id number] Age/Sex: 39 / F ADM Date: 03/01/25 Loc: MAMMO Attending Dr: Shivani Jordan DO Ordering Physician: Shivani Jordan DO Results: 1N egative Date of Service: 03/01/25 Follow Up: 1 Year From Orig inal Mammogram Procedure(s): MM tomosynthesis screening BI Accession Number(s): [id number] cc: Shivani Jordan DO Reason For Exam: [...] 03/09/25 1337 DD/ 0855 TD/TT: 03/01/25 0908 Wirer Maintenance: Procedure Note Donotuseinterpreter, Image - 03/09/2025 [facility] [address] [place] [address] Mammography Report Signed Patient: Pasquale BragaidyMR#: [id number] : 1985Acct:[id number] Age/Sex: 39 / FADM Date: 03/01/25 Loc: MARIE.MAMMO Attending Dr: Shivani Jordan DO Ordering Physician: Shivani Jordanults: 1N egative Date of Service: 03/01/25Follow Up: 1 Year From Orig inal Mammogram Procedure(s): MM tomosynthesis screening BI Accession Number(s): [id number] cc: Shivani Jordan DO Reason For Exam: [...] 03/09/25 1337 DD/ 0855 TD/TT: 03/01/25 0908 Wirer Maintenance: Shivani Jordan DO IMG BI PROCEDURES Final Resu lt * Hepatitis C Antibody with Reflex to HCV, RNA, Quantitative, Real-Time PCR (01/07/2025 10:06 AM EDT) Hepatitis C Antibody GRAYZONE Nonreactive [facility] Comment:Antibodies to HCV ma y or may not be present. Suggest repeatanti-HCV in 4-6 weeks and/or HCV viral load if clinicallyindicated. Blood Venous blood specimen / Unknown 01/07/2025 10:06 AM EDT 01/07/2025 11:22 AM EDT Shivani Jordan DO LAB BLOOD ORDERABLES Final R esult [facility] [address] [place] [phone] * HIV-1/2 Antigen and Antibodies, Fourth Generation, with Reflexes (01/07/2025 10:06 AM EDT) HIV AB/AG Nonreactive Nonreactive [facility] Comment:HIV-1 p24 Ag and/or HIV-1/HIV-2 Ab not detected.A test result that is nonreactive does not exclude thepossibility of exposure to or infection with HIV-1 and/orHIV-2. Nonreactive results in this assay for individualswith prior exposure to HIV-1 and/or HIV-2 may be due toantigen and antibody levels that are below the limit ofdetection of this assay.The [facility] HIV Ag/Ab Combo assay result andsupplemental assay results should be interpreted inconjunction with the patient's clinical presentation,history and other laboratory results. If the results areinconsistent with clinical evidence, additional testing issuggested to confirm the result. Blood Venous blood specimen / Unknown 01/07/2025 10:06 AM EDT 01/07/2025 11:22 AM EDT us Shivani Jordan DO LAB BLOOD ORDERABLES Final R esult [facility] [address] [place] [phone] * Pap Smear (03/29/2024 8:30 AM EDT) 03/29/2024 8:30 AM EDT 03/30/2024 10:04 AM EDT Narrative [facility] - 04/03/2024 8:18 AM EST ----- ------- Name: Nazanin Braga Age/Sex: 38/F : 1985 Unit#: [id number] Attend Dr: Terell Collazo MD Re03/29/24 Status: DEP REF Location: LNP Disch: ----- ------- SPEC : [id number] RECD: 03/30/24 STATUS: EZEQUIEL WEINSTEIN NUM: [id number] MATTHEW: 03/29/[address] [facility] [address]: Terell Collazo MD ENTERED: 03/30/24 [...] Received ThinPrep-Cervical Copies To: Shivani Jordan DO [address] [address] Terell Collazo MD [facility] [address] [place] [address] ----- ------- Signed (signature on file) MAXIMILIANO Meza (ASCP) 04/03/24 0818 ----- ------- END OF REPORT Generic External Data Provider LAB CYTOLOGY ORDE RABLES Final Result Performing Organization Address City/[facility]/ZIP Co de Phone Number [facility] [address] [place] [phone] * HPV mRNA E6/E7 w/Reflex to HPV Genotypes 16, 18/45 (03/28/2024 12:00 AM EDT) Historical Provider MD LAB CYTOLOGY ORDERABLES F inal Result Performing Organization Address [facility]/ZIP Co de Phone Number [facility] [address] [place] [phone] from Last 3 Months or Most Recently Relevant to Health Maintenance Insurance [facility] [place] Care Teams Roll Shop Supervisor Relationship Specialty Start Date End Date Shivani Jordan DO [address] [place] [phone] PCP - General Family Medicine 05/30/18
== END 2025-05-21 12:06 | disposition home or self-care (01) ==
LOC: HO.HWS 11:17
PROVIDERS: PCP Family Medicine; Visit Provider Obstetrics & Gynecology
DX: D25.9 Leiomyoma of uterus, unspecified (principal); R93.5 Abnormal findings on diagnostic imaging of other abdominal regions, including retroperitoneum; N83.299 Other ovarian cyst, unspecified side
CPT/HCPCS: 99213

== ENCOUNTER → 2025-05-21 11:16 | Outpatient (BNVA) | payer OTHER, SELFPAY | PROVIDERS: PCP Family Medicine; Visit Provider Obstetrics & Gynecology | DX: D25.9 Leiomyoma of uterus, unspecified (principal); R93.5 Abnormal findings on diagnostic imaging of other abdominal regions, including retroperitoneum; N83.292 Other ovarian cyst, left side; Z98.51 Tubal ligation status; Z98.890 Other specified postprocedural states | CPT/HCPCS: 99212 ==